=== PATIENT | female | born 1990 | race American Indian/Alaskan Native ===

== ENCOUNTER 2020-09-19 11:24 | Outpatient (CLI) | payer MEDICAID ==
[2020-09-19 13:40] LABS: Bilirubin,Urine NEG (Negative); Blood,Urine NEG (Negative); Color,Urine Yellow (Yellow); Mucus,Urine FEW /HPF; Protein,Urine <15 mg/dL mg/dL (Negative); Urobilinogen,Urine < 2.0 mg/dL (<2.0)
[2020-09-19] MEDS ORDERED: ONDANSETRON 4 MG/2 ML INJ IV ONE (14:19)
[2020-09-19 14:30] LABS: Hematocrit 30.8 % (30.3-42.9); Hemoglobin 10.4 gm/dl (10.1-14.3); Mean Corpuscular HGB Conc 34 % (30-34); Mean Corpuscular Volume 90 fl (79-97); Platelet Count 204 K/mm3 (140-440); Red Blood Count 3.43 M/mm3 (3.65-5.03); Red Cell Distribution Width 13.1 % (13.2-15.2)
[2020-09-19] MEDS ORDERED: METOCLOPRAMIDE 10 MG/2 ML INJ IV ONE (14:46)
[2020-09-19] MEDS: LACTATED RINGERS 1,000 ML IV SCH ×2 (14:48→15:19)
[2020-09-19] MEDS ORDERED: PROMETHAZINE 25 MG RECT SUPP PR ONE (14:48)
[2020-09-19] MEDS ORDERED: MORPHINE 2 MG/1 ML INJ IV ONE (14:49)
[2020-09-19 14:52] LABS: Alanine Aminotransferase 8 units/L (7-56); Uric Acid 2.8 mg/dL (3.5-7.6)
[2020-09-19 16:09] VITALS: BP 146/67
== END 2020-09-19 16:46 | disposition home or self-care (01) ==
LOC: TRG 11:24 → APU 11:25 → TRG 16:46
PROVIDERS: ATTEND Obstetrics & Gynecology
DX: O21.2 Late vomiting of pregnancy (principal); O26.893 Other specified pregnancy related conditions, third trimester; M79.89 Other specified soft tissue disorders; O47.03 False labor before 37 completed weeks of gestation, third trimester; Z3A.28 28 weeks gestation of pregnancy
CPT/HCPCS: 36415; 59025; 81001; 82565; 83615; 84450; 84460; 84550; 85027; 96361; 96374; 96375; J2270; J2765; J7120; 96360

== ENCOUNTER 2020-09-21 10:39 | Outpatient (CLI) | payer MEDICAID ==
[2020-09-21] MEDS ORDERED: LACTATED RINGERS 1,000 ML IV SCH (11:30)
[2020-09-21 12:33] LABS: Bacteria,Urine 1+ /HPF (Negative); Bilirubin,Urine NEG (Negative); Blood,Urine NEG (Negative); Color,Urine Yellow (Yellow); Mucus,Urine 2+ /HPF; Urobilinogen,Urine < 2.0 mg/dL (<2.0)
[2020-09-21 12:40] LABS: Hematocrit 33.9 % (30.3-42.9); Hemoglobin 11.3 gm/dl (10.1-14.3); Mean Corpuscular HGB Conc 33 % (30-34); Mean Corpuscular Volume 91 fl (79-97); Platelet Count 203 K/mm3 (140-440); Red Blood Count 3.74 M/mm3 (3.65-5.03); Red Cell Distribution Width 13.3 % (13.2-15.2)
[2020-09-21 12:49] LABS: Alanine Aminotransferase 9 units/L (7-56); Uric Acid 2.8 mg/dL (3.5-7.6)
[2020-09-21 18:13] VITALS: BP 151/81
== END 2020-09-21 15:45 | disposition home or self-care (01) ==
LOC: TRG 10:39 → APU 10:40 → TRG 15:45
PROVIDERS: ATTEND Obstetrics & Gynecology
DX: O13.3 Gestational [pregnancy-induced] hypertension without significant proteinuria, third trimester (principal); Z3A.28 28 weeks gestation of pregnancy
CPT/HCPCS: 36415; 59025; 81001; 82565; 83615; 84450; 84460; 84550; 85027

== ENCOUNTER 2020-09-30 09:59 | Inpatient (IN) | payer MEDICAID ==
[2020-09-30] MEDS ORDERED: LACTATED RINGERS 1,000 ML IV ONE (10:36)
[2020-09-30 11:10] LABS: Basophils % (Auto) 0.5 % (0.0-1.8); Eosinophils % (Auto) 0.7 % (0.0-4.3); Hematocrit 30.1 % (30.3-42.9); Lymphocytes # (Auto) 1.5 K/mm3 (1.2-5.4); Lymphocytes % (Auto) 23.7 % (13.4-35.0); Mean Corpuscular HGB Conc 33 % (30-34); Mean Corpuscular Volume 89 fl (79-97); Monocytes # (Auto) 0.5 K/mm3 (0.0-0.8); Monocytes % (Auto) 8.1 % (0.0-7.3); Platelet Count 188 K/mm3 (140-440); Red Blood Count 3.37 M/mm3 (3.65-5.03)
[2020-09-30 11:11] LABS: Bilirubin,Urine NEG (Negative); Blood,Urine NEG (Negative); Color,Urine Yellow (Yellow); Mucus,Urine FEW /HPF; Protein,Urine <15 mg/dL mg/dL (Negative); Urobilinogen,Urine < 2.0 mg/dL (<2.0)
[2020-09-30 11:45] LABS: Alanine Aminotransferase 7 units/L (7-56); Albumin 3.4 g/dL (3.9-5); BUN/Creatinine Ratio 6; Blood Urea Nitrogen 3 mg/dL (7-17); Calcium 8.3 mg/dL (8.4-10.2); Hemolysis Index 0
[2020-09-30] MEDS ORDERED: BUTORPHANOL 2 MG/1 ML INJ IV PRN (11:47)
[2020-09-30] MEDS ORDERED: ePHEDrine SULFATE 50 MG/1 ML INJ IV PRN (11:47)
[2020-09-30] MEDS ORDERED: ONDANSETRON 4 MG/2 ML INJ IV PRN (11:47)
[2020-09-30] MEDS ORDERED: MINERAL OIL 30 ML ORAL LIQD PO PRN (11:47)
[2020-09-30] MEDS ORDERED: fentaNYL 100 MCG/2 ML INJ IV PRN (11:47)
--- NOTE | 2020-09-30 11:56 | History and Physical Report ---
History of Present Illness Date of examination: 09/30/20 Chief complaint: elevated blood pressure at 30 weeks History of present illness: 30yo @30.0 weeks with MICHELLE,edema, blurry vision, RUQ pain and elevated BP's from baseline. She is admitted from clinic for PE workup and steroids. KIMBERLYN 12/09/2020 BPs as outpatient 122-161/60-101: not on medication 24 hour urine protein collected 09/23: 176 [facility]: total visits: #7 Problem list: * hx of preeclampsiax2 * morbid obesity * hx of deliveryx2 * HSV2 seropositive Past History Past Medical History: other (obesity) Past Surgical History: no surgical history Family/Genetic History: none Social history: no significant social history - Obstetrical History Expected Date of Delivery: 12/09/20 Actual Gestation: 30 Week(s) 0 Day(s) : 5 Para: 1 Hx # Term Pregnancies: 2 Number of Pregnancies: 0 Number of Living Children: 3 Medications and Allergies Allergies Allergy/AdvReac Type Severity Reaction Status Date / Time ondansetron [From Zofran] Allergy Severe Rash Verified 09/19/20 14:51 butorphanol [From Stadol] AdvReac Severe Anaphylaxis Verified 09/19/20 12:44 tramadol AdvReac Severe Rash Verified 09/19/20 12:46 Home Medications Medication Instructions Recorded Confirmed Last Taken Type Butalb/Acetamin/Caff 50-325-40 01/26/14 01/26/14 Unknown History [Fioricet] HYDROcodone/APAP 10-325 [[place] 1 each PO Q8HR PRN #20 tablet 01/26/14 Unknown Rx 10/325] Ibuprofen [Motrin 800 MG tab] 800 mg PO Q8H PRN 01/26/14 01/26/14 Unknown History Ondansetron [Zofran Odt] 8 mg PO TID PRN #20 tab.rapdis 01/26/14 Unknown Rx diazePAM TAB [Valium] 2 mg PO DAILY PRN 01/26/14 01/26/14 Unknown History Cyclobenzaprine [Flexeril 10mg] 10 mg PO TID PRN #10 tablet 05/11/14 Unknown Rx Sulfamethoxazole/Trimethoprim 1 each PO BID #20 tablet 05/11/14 Unknown Rx [Bactrim Ds] Active Meds: Active Medications Acetaminophen (Acetaminophen 325 Mg Tab) 650 mg PO Q4H PRN PRN Reason: Pain, Mild (1-3) Betamethasone Acet/Betameth SodPhos (Betamet Acet/Betamet Na Ph 6 Mg/Ml Inj 5 Ml Mdv) 12 mg IM Q24HR [facility] Stop: 10/01/20 10:01 Butorphanol Tartrate (Butorphanol 2 Mg/1 Ml Inj) 1 mg IV Q2H PRN PRN Reason: Pain, Moderate(4-6) LABOR PAIN Ephedrine Sulfate (Ephedrine Sulfate 50 Mg/1 Ml Inj) 10 mg IV Q2M PRN PRN Reason: Hypotension Fentanyl (Fentanyl 100 Mcg/2 Ml Inj) 100 mcg IV Q2H PRN PRN Reason: Pain,Severe (7-10) LABOR PAIN Lactated Ringer's (Lactated Ringers) 1,000 mls @ 125 mls/hr IV DIRECT [facility] Labetalol HCl (Labetalol 200 Mg Tab) 100 mg PO BID [facility] Mineral Oil (Mineral Oil 30 Ml Oral Liqd) 30 ml PO QHS PRN PRN Reason: Constipation Ondansetron HCl (Ondansetron 4 Mg/2 Ml Inj) 4 mg IV Q8H PRN PRN Reason: Nausea And Vomiting - Vital Signs Vital signs: Vital Signs Pulse BP 84 139/70 09/30/20 10:45 09/30/20 10:45 Temp Pulse Resp BP Pulse Ox 83 140/79 99 09/30/20 11:36 09/30/20 11:30 09/30/20 11:36 - Physical Exam Breasts: Positive: deferred Cardiovascular: Regular rate Lungs: Positive: Clear to auscultation Abdomen: Positive: normal appearance, soft, normal bowel sounds Genitourinary (Female): Positive: normal external genitalia, normal perenium Uterus: Positive: enlarged (30cm) Anus/Rectum: Positive: normal perianal skin Extremities: Positive: edema Deep Tendon Reflex Grade: Normal but brisk +3 Results Result Diagrams: 09/30/20 11:47 09/30/20 10:40 Abnormal lab results 09/30/20 09/30/20 09/30/20 Range/Units 10:40 10:40 10:40 RBC 3.37 L (3.65-5.03) M/mm3 Hgb 10.0 L (10.1-14.3) gm/dl Hct 30.1 L (30.3-42.9) % RDW 13.0 L (13.2-15.2) % [place] % (Auto) 8.1 H (0.0-7.3) % Sodium 136 L (137-145) mmol/L BUN 3 L (7-17) mg/dL Creatinine 0.5 L (0.6-1.2) mg/dL Calcium 8.3 L (8.4-10.2) mg/dL Total Protein 6.1 L (6.3-8.2) g/dL Albumin 3.4 L (3.9-5) g/dL Urine pH 8.0 H (5.0-7.0) All other labs normal. Assessment and Plan preeclampsia workup: does not meet criteria for MgS04 at this time Monitor BPs closely 24 hour urine protein collection steroids US EFW and UA dopplers serial labs AP consult RUQ US for RUQ pain Maternal/ well being reassuring overall Irena Cagle MD
--- NOTE | 2020-09-30 13:26 | Ultrasound Report ---
ULTRASOUND BIOPHYSICAL PROFILE INDICATION: preeclapmsia,. COMPARISON: None available. FINDINGS: heart rate is 145 beats per minute. breathing movement = 2 Gross body movement = 2 tone = 2 Qualitative amniotic fluid volume = 2 IMPRESSION: biophysical profile = 01/01 Signer Name: Chay Caldwell Jr, MD Signed: 09/30/2020 1:21 PM Workstation Name: [id number]
--- NOTE | 2020-09-30 13:28 | Ultrasound Report ---
OB ULTRASOUND >= 14 WEEKS FETUS INDICATION: preeclapmsia, COMPARISON: None FINDINGS: A single gestation intrauterine is present with cephalic presentation. The placenta is post erior, right lateral, grade 1 and free of the cervical os. heart tones measure 150 bpm. Amniotic fluid volume is normal with a fluid index of 16.9. The four-chamber heart, diaphragm, umbilical cord, cord insertion, stomach, kidneys, and bladde r show no sonographic abnormality. Views of the neuroanatomy and spine are limited due to position an d shadowing calvarium. Biparietal diameter is 7.7 cm which equals 30 weeks 6 days. Head circumference is 27.8 cm which equals 30 weeks 2 days. Abdominal circumference is 24.4 cm which equals 28 weeks 4 days. Femur length is 5.8 cm which equals 30 weeks 3 days. Overall estimated sonographic age is 30 weeks 0 days. Estimated weight: 1412 g. HC/AC ratio: 1.14 Cephalic index: 91.7 IMPRESSION: Viable single intrauterine as described. No acute abnormality is detected. Signer Name: Chay Caldwell Jr, MD Signed: 09/30/2020 1:24 PM Workstation Name: [id number]
--- NOTE | 2020-09-30 13:29 | Ultrasound Report ---
LIMITED RUQ ABDOMINAL ULTRASOUND INDICATION: RUQ pain. COMPARISON: No relevant prior imaging study available. FINDINGS: Pancreas: Visualized portions show no significant abnormality. Abdominal Aorta: No significant abnormality. IVC: No significant abnormality. Liver: The liver measures 13.2 cm in length. No significant abnormality. Normal hepatopedal blood fl ow in the main portal vein. Gallbladder: No significant abnormality. Bile ducts: No significant abnormality. Common bile duct measures 2.8 mm. Right kidney: No significant abnormality visualized. Free fluid: None. Additional Findings: None. IMPRESSION: Normal exam. Signer Name: Chay Caldwell Jr, MD Signed: 09/30/2020 1:24 PM Workstation Name: [id number]
--- NOTE | 2020-09-30 13:30 | Ultrasound Report ---
UMBILICAL CORD DOPPLER HISTORY: Preeclampsia, labor TECHNIQUE: Transabdominal ultrasound with color and spectral Doppler imaging. FINDINGS: 3 segments of the umbilical cord were evaluated. heart rate measures 138 bpm. The spe ctral wave forms are normal and persistent. No evidence for loss of end-diastolic flow. The S/D ratio average measures 2.91. The resistive index average measures 0.65. IMPRESSION: Umbilical cord Doppler within normal limits. Signer Name: Chay Caldwell Jr, MD Signed: 09/30/2020 1:25 PM Workstation Name: [id number]
[2020-09-30] MEDS: BETAMET ACET/BETAMET NA PH 6 MG/ML INJ 5 ML MDV IM SCH (13:55)
[2020-09-30 14:51] LABS: Hematocrit 32.7 % (30.3-42.9); Hemoglobin 10.8 gm/dl (10.1-14.3); Mean Corpuscular HGB Conc 33 % (30-34); Mean Corpuscular Volume 91 fl (79-97); Platelet Count 189 K/mm3 (140-440); Red Blood Count 3.59 M/mm3 (3.65-5.03); Red Cell Distribution Width 13.3 % (13.2-15.2)
--- NOTE | 2020-09-30 15:56 | Consultation ---
History of Present Illness Consult date: 09/30/20 Requesting physician: JANELLE LOWRY History of present illness: HPI 30 y/o EGA 30 0/7 weeks KIMBERLYN 12/09/20 Presented with MICHELLE's Swelling and elevated BP's Prior H/O Preeclampsia and PTD at 34 and 35 weeks Reports elevated BP's and MICHELLE's over past couple weeks BP at home ( picture on cell phone ) at 164/97 BP's at [facility] 145/79 and 135/70 but laying down MICHELLE's earlier this am 11/03 now better Patient showed picture of her lower extremities taken at home with 3Plus edema OB History 2009 Induced vag at 34 weeks preeclampsia F 2010 Induced vag at 36 weeks ( my baby was big ?? ) 2012 Induced vag at 35 weeks preeclampsia F Denies CHTN No surg no S/D/D NKA Please confirm passing 1 Hour GTT - " Passed " per patient No STD Allergic to stadol Tramidol Zofran labs H/H at 10.8/32 Plts at 189 UA spot Prot at < 15 AST/ALT at 17/7 Creat at .5 PE Face mild swelling port wine estefania Abd gravid obese no ruq pain no rebound ext 1plus edema DTR 2/4 no clonus US EFW at 1412 g - 24% ( APA US 09/05/20 EFW at 912 g 31% ) BPP 8/8 YOANNA at 16.9 cm EFM 140-150 categ I Past History - Obstetrical History : 5 Medications and Allergies Allergies Allergy/AdvReac Type Severity Reaction Status Date / Time ondansetron [From Zofran] Allergy Severe Rash Verified 09/30/20 15:58 butorphanol [From Stadol] AdvReac Severe Anaphylaxis Verified 09/30/20 15:58 tramadol AdvReac Severe Rash Verified 09/30/20 15:58 Active Meds: Active Medications Acetaminophen (Acetaminophen 325 Mg Tab) 650 mg PO Q4H PRN PRN Reason: Pain, Mild (1-3) Betamethasone Acet/Betameth SodPhos (Betamet Acet/Betamet Na Ph 6 Mg/Ml Inj 5 Ml Mdv) 12 mg IM Q24HR [facility] Stop: 10/01/20 10:01 Last Admin: 09/30/20 13:55 Dose: 12 mg Documented by: Butorphanol Tartrate (Butorphanol 2 Mg/1 Ml Inj) 1 mg IV Q2H PRN PRN Reason: Pain, Moderate(4-6) LABOR PAIN Ephedrine Sulfate (Ephedrine Sulfate 50 Mg/1 Ml Inj) 10 mg IV Q2M PRN PRN Reason: Hypotension Fentanyl (Fentanyl 100 Mcg/2 Ml Inj) 100 mcg IV Q2H PRN PRN Reason: Pain,Severe (7-10) LABOR PAIN Lactated Ringer's (Lactated Ringers) 1,000 mls @ 125 mls/hr IV DIRECT [facility] Labetalol HCl (Labetalol 200 Mg Tab) 100 mg PO BID [facility] Last Admin: 09/30/20 13:55 Dose: 100 mg Documented by: Mineral Oil (Mineral Oil 30 Ml Oral Liqd) 30 ml PO QHS PRN PRN Reason: Constipation Ondansetron HCl (Ondansetron 4 Mg/2 Ml Inj) 4 mg IV Q8H PRN PRN Reason: Nausea And Vomiting - Vital Signs Vital signs: Vital Signs Pulse BP 84 139/70 09/30/20 10:45 09/30/20 10:45 Temp Pulse Resp BP Pulse Ox 93 H 135/70 100 09/30/20 15:43 09/30/20 14:19 09/30/20 15:43 Results Result Diagrams: 09/30/20 11:47 09/30/20 10:40 Abnormal lab results 09/30/20 09/30/20 09/30/20 Range/Units 10:40 10:40 10:40 RBC 3.37 L (3.65-5.03) M/mm3 Hgb 10.0 L (10.1-14.3) gm/dl Hct 30.1 L (30.3-42.9) % RDW 13.0 L (13.2-15.2) % [place] % (Auto) 8.1 H (0.0-7.3) % Sodium 136 L (137-145) mmol/L BUN 3 L (7-17) mg/dL Creatinine 0.5 L (0.6-1.2) mg/dL Calcium 8.3 L (8.4-10.2) mg/dL Total Protein 6.1 L (6.3-8.2) g/dL Albumin 3.4 L (3.9-5) g/dL Urine pH 8.0 H (5.0-7.0) 09/30/20 Range/Units 11:47 RBC 3.59 L (3.65-5.03) M/mm3 Hgb (10.1-14.3) gm/dl Hct (30.3-42.9) % RDW (13.2-15.2) % [place] % (Auto) (0.0-7.3) % Sodium (137-145) mmol/L BUN (7-17) mg/dL Creatinine (0.6-1.2) mg/dL Calcium (8.4-10.2) mg/dL Total Protein (6.3-8.2) g/dL Albumin (3.9-5) g/dL Urine pH (5.0-7.0) All other labs normal. Assessment and Plan Impression: 1. Ver[place] IUP at 30 0/7 weeks 2. Gest HTN r/o Preeclampsia 3. Prior H/O Preeclampsia X 2 at 34 and 35 weeks 4. Reported MICHELLE's and swelling 5. Anemia Plan: 1. Steroids for FLM 2. Mg for neuroprophylaxis may dc after 24 hours if no severe features 3. NICU consult 4. Seq leg compressors 5. Delivery for S/S of Severe Preeclampsia or compromise
[2020-09-30] MEDS ORDERED: MAGNESIUM SULFATE 4 GM/100 ML BAG IV ONE (16:26)
[2020-09-30] MEDS ORDERED: BICITRA ORAL LIQD 30ML PO ONE (16:39)
[2020-09-30] MEDS ORDERED: METOCLOPRAMIDE 10 MG/2 ML INJ IV ONE (16:40)
[2020-09-30] MEDS ORDERED: MORPHINE 2 MG/1 ML INJ IM ONE (16:40)
[2020-09-30] MEDS ORDERED: MAGNESIUM SULFATE 40GM/1000ML 40 GM/1,000 ML BAG IV SCH (17:00)
[2020-09-30] MEDS: LACTATED RINGERS 1,000 ML IV SCH (17:23)
[2020-09-30] MEDS ORDERED: PROMETHAZINE 25 MG RECT SUPP PR ONE (20:00)
[2020-09-30] MEDS: ACETAMINOPHEN 325 MG TAB PO PRN (20:13)
[2020-09-30] MEDS ORDERED: LORazepam 2 MG/ML VIAL IV ONE (20:51)
--- NOTE | 2020-10-01 08:14 | Progress Note ---
Subjective - Subjective Date of service: 10/01/20 Interval history: 30yo @30.1 weeks GHTN with r/out preeclampsia Pt doing well, no complaints at bedside awaiting 24 hour urine protein collection completion and completion of steroids BP's average 140/90's MGSO4 level 4.7 DTR +1/4 bilaterally FHT 140 baseline,moderate variability Continue current management Maternal/ wellbeing reassuring overall Irena Cagle MD Objective - Vital Signs Vital Signs: Vital Signs - 12hr 09/30/20 09/30/20 09/30/20 20:13 20:18 20:21 Temperature Pulse Rate 105 H 95 H 101 H Respiratory Rate Blood Pressure 152/81 Blood Pressure [Right] O2 Sat by Pulse 98 99 Oximetry 09/30/20 09/30/20 09/30/20 20:23 20:28 20:33 Temperature Pulse Rate 108 H 98 H 108 H Respiratory Rate Blood Pressure Blood Pressure [Right] O2 Sat by Pulse 99 100 98 Oximetry 09/30/20 09/30/20 09/30/20 20:36 20:38 20:43 Temperature Pulse Rate 110 H 107 H 102 H Respiratory Rate Blood Pressure 147/70 Blood Pressure [Right] O2 Sat by Pulse 99 100 Oximetry 09/30/20 09/30/20 09/30/20 20:48 20:51 20:53 Temperature 98.5 F Pulse Rate 107 H 106 H 97 H Respiratory 22 Rate Blood Pressure 147/84 Blood Pressure [Right] O2 Sat by Pulse 100 99 Oximetry 09/30/20 09/30/20 09/30/20 20:58 21:03 21:06 Temperature Pulse Rate 110 H 104 H 100 H Respiratory Rate Blood Pressure 153/87 Blood Pressure [Right] O2 Sat by Pulse 98 100 Oximetry 09/30/20 09/30/20 09/30/20 21:08 21:13 21:18 Temperature Pulse Rate 105 H 100 H 105 H Respiratory Rate Blood Pressure Blood Pressure [Right] O2 Sat by Pulse 99 96 98 Oximetry 09/30/20 09/30/20 09/30/20 21:22 21:23 21:28 Temperature Pulse Rate 105 H 105 H 120 H Respiratory Rate Blood Pressure 141/70 Blood Pressure [Right] O2 Sat by Pulse 97 99 Oximetry 09/30/20 09/30/20 09/30/20 21:33 21:36 21:38 Temperature Pulse Rate 113 H 126 H 115 H Respiratory Rate Blood Pressure 143/87 Blood Pressure [Right] O2 Sat by Pulse 99 99 Oximetry 09/30/20 09/30/20 09/30/20 21:43 21:48 21:53 Temperature Pulse Rate 102 H 127 H 103 H Respiratory Rate Blood Pressure Blood Pressure [Right] O2 Sat by Pulse 100 98 100 Oximetry 09/30/20 09/30/20 09/30/20 21:58 22:03 22:08 Temperature Pulse Rate 120 H 106 H 104 H Respiratory Rate Blood Pressure Blood Pressure [Right] O2 Sat by Pulse 98 98 98 Oximetry 09/30/20 09/30/20 09/30/20 22:13 22:18 22:23 Temperature Pulse Rate 112 H 109 H 106 H Respiratory Rate Blood Pressure 145/81 Blood Pressure [Right] O2 Sat by Pulse 97 97 97 Oximetry 09/30/20 09/30/20 09/30/20 22:28 22:33 22:37 Temperature Pulse Rate 107 H 109 H 117 H Respiratory Rate Blood Pressure Blood Pressure [Right] O2 Sat by Pulse 97 97 92 Oximetry 09/30/20 09/30/20 09/30/20 22:38 22:43 22:45 Temperature Pulse Rate 124 H 99 H 104 H Respiratory Rate Blood Pressure 169/82 Blood Pressure [Right] O2 Sat by Pulse 97 100 Oximetry 09/30/20 09/30/20 09/30/20 22:48 22:53 22:58 Temperature Pulse Rate 101 H 104 H 105 H Respiratory Rate Blood Pressure Blood Pressure [Right] O2 Sat by Pulse 100 99 100 Oximetry 09/30/20 09/30/20 09/30/20 23:03 23:08 23:13 Temperature Pulse Rate 110 H 106 H 102 H Respiratory Rate Blood Pressure 140/77 Blood Pressure [Right] O2 Sat by Pulse 100 100 99 Oximetry 09/30/20 09/30/20 09/30/20 23:15 23:18 23:23 Temperature Pulse Rate 102 H 108 H 112 H Respiratory Rate Blood Pressure 158/86 Blood Pressure [Right] O2 Sat by Pulse 100 100 Oximetry 09/30/20 09/30/20 09/30/20 23:28 23:33 23:38 Temperature Pulse Rate 107 H 107 H 109 H Respiratory Rate Blood Pressure Blood Pressure [Right] O2 Sat by Pulse 100 99 100 Oximetry 09/30/20 09/30/20 09/30/20 23:43 23:48 23:53 Temperature Pulse Rate 107 H 116 H 111 H Respiratory Rate Blood Pressure 173/96 Blood Pressure [Right] O2 Sat by Pulse 100 99 100 Oximetry 09/30/20 10/01/20 10/01/20 23:58 00:02 00:03 Temperature Pulse Rate 104 H 99 H 105 H Respiratory Rate Blood Pressure 137/62 Blood Pressure [Right] O2 Sat by Pulse 99 99 Oximetry 10/01/20 10/01/20 10/01/20 00:08 00:13 00:18 Temperature Pulse Rate 103 H 107 H 96 H Respiratory Rate Blood Pressure Blood Pressure [Right] O2 Sat by Pulse 100 98 99 Oximetry 10/01/20 10/01/20 10/01/20 00:23 00:25 00:28 Temperature Pulse Rate 99 H 109 H 106 H Respiratory Rate Blood Pressure Blood Pressure [Right] O2 Sat by Pulse 98 92 95 Oximetry 10/01/20 10/01/20 10/01/20 00:33 00:35 00:38 Temperature Pulse Rate 96 H 100 H 99 H Respiratory Rate Blood Pressure 134/66 Blood Pressure [Right] O2 Sat by Pulse 98 92 97 Oximetry 10/01/20 10/01/20 10/01/20 00:40 00:43 00:46 Temperature Pulse Rate 103 H 105 H 104 H Respiratory Rate Blood Pressure Blood Pressure [Right] O2 Sat by Pulse 93 95 94 Oximetry 10/01/20 10/01/20 10/01/20 00:48 00:52 00:53 Temperature Pulse Rate 103 H 102 H 103 H Respiratory Rate Blood Pressure Blood Pressure [Right] O2 Sat by Pulse 94 94 95 Oximetry 10/01/20 10/01/20 10/01/20 00:58 01:03 01:04 Temperature Pulse Rate 113 H 112 H 104 H Respiratory Rate Blood Pressure 138/73 Blood Pressure [Right] O2 Sat by Pulse 96 98 93 Oximetry 10/01/20 10/01/20 10/01/20 01:08 01:13 01:18 Temperature Pulse Rate 98 H 103 H 105 H Respiratory Rate Blood Pressure Blood Pressure [Right] O2 Sat by Pulse 98 94 95 Oximetry 10/01/20 10/01/20 10/01/20 01:23 01:26 01:28 Temperature Pulse Rate 99 H 101 H 99 H Respiratory Rate Blood Pressure Blood Pressure [Right] O2 Sat by Pulse 96 93 96 Oximetry 10/01/20 10/01/20 10/01/20 01:33 01:35 01:38 Temperature Pulse Rate 99 H 102 H 100 H Respiratory Rate Blood Pressure 139/68 Blood Pressure [Right] O2 Sat by Pulse 96 94 96 Oximetry 10/01/20 10/01/20 10/01/20 01:43 01:48 01:53 Temperature Pulse Rate 113 H 91 H 101 H Respiratory Rate Blood Pressure Blood Pressure [Right] O2 Sat by Pulse 98 100 97 Oximetry 10/01/20 10/01/20 10/01/20 01:58 02:03 02:08 Temperature Pulse Rate 96 H 107 H 98 H Respiratory Rate Blood Pressure 139/75 Blood Pressure [Right] O2 Sat by Pulse 97 98 99 Oximetry 10/01/20 10/01/20 10/01/20 02:13 02:18 02:23 Temperature Pulse Rate 97 H 98 H 99 H Respiratory Rate Blood Pressure Blood Pressure [Right] O2 Sat by Pulse 98 98 97 Oximetry 10/01/20 10/01/20 10/01/20 02:28 02:33 02:38 Temperature Pulse Rate 104 H 101 H 99 H Respiratory Rate Blood Pressure 139/74 Blood Pressure [Right] O2 Sat by Pulse 96 98 97 Oximetry 10/01/20 10/01/20 10/01/20 02:43 02:44 02:48 Temperature Pulse Rate 102 H 111 H 107 H Respiratory Rate Blood Pressure Blood Pressure [Right] O2 Sat by Pulse 95 94 100 Oximetry 10/01/20 10/01/20 10/01/20 02:52 02:53 02:58 Temperature Pulse Rate 100 H 94 H 91 H Respiratory Rate Blood Pressure 152/98 Blood Pressure [Right] O2 Sat by Pulse 100 100 Oximetry 10/01/20 10/01/20 10/01/20 03:01 03:03 03:08 Temperature Pulse Rate 91 H 90 91 H Respiratory Rate Blood Pressure 141/66 121/57 Blood Pressure [Right] O2 Sat by Pulse 100 99 Oximetry 10/01/20 10/01/20 10/01/20 03:13 03:18 03:23 Temperature Pulse Rate 105 H 89 90 Respiratory Rate Blood Pressure Blood Pressure [Right] O2 Sat by Pulse 98 99 99 Oximetry 10/01/20 10/01/20 10/01/20 03:28 03:33 03:34 Temperature Pulse Rate 94 H 94 H 93 H Respiratory Rate Blood Pressure 115/57 Blood Pressure [Right] O2 Sat by Pulse 98 100 Oximetry 10/01/20 10/01/20 10/01/20 03:38 03:43 03:48 Temperature Pulse Rate 94 H 94 H 95 H Respiratory Rate Blood Pressure Blood Pressure [Right] O2 Sat by Pulse 100 100 99 Oximetry 10/01/20 10/01/20 10/01/20 03:53 03:58 04:03 Temperature Pulse Rate 95 H 95 H 100 H Respiratory Rate Blood Pressure Blood Pressure [Right] O2 Sat by Pulse 95 96 96 Oximetry 10/01/20 10/01/20 10/01/20 04:05 04:08 04:13 Temperature Pulse Rate 94 H 93 H 92 H Respiratory Rate Blood Pressure 118/59 Blood Pressure [Right] O2 Sat by Pulse 98 98 Oximetry 10/01/20 10/01/20 10/01/20 04:18 04:23 04:28 Temperature Pulse Rate 91 H 91 H 90 Respiratory Rate Blood Pressure Blood Pressure [Right] O2 Sat by Pulse 98 100 99 Oximetry 10/01/20 10/01/20 10/01/20 04:33 04:38 04:40 Temperature Pulse Rate 90 91 H 95 H Respiratory Rate Blood Pressure 128/56 Blood Pressure [Right] O2 Sat by Pulse 99 99 92 Oximetry 10/01/20 10/01/20 10/01/20 04:43 04:48 04:53 Temperature Pulse Rate 96 H 95 H 91 H Respiratory Rate Blood Pressure Blood Pressure [Right] O2 Sat by Pulse 96 99 99 Oximetry 10/01/20 10/01/20 10/01/20 04:58 05:03 05:05 Temperature Pulse Rate 93 H 95 H 93 H Respiratory Rate Blood Pressure 125/60 Blood Pressure [Right] O2 Sat by Pulse 98 99 Oximetry 10/01/20 10/01/20 10/01/20 05:08 05:13 05:18 Temperature Pulse Rate 99 H 100 H 108 H Respiratory Rate Blood Pressure Blood Pressure [Right] O2 Sat by Pulse 98 97 100 Oximetry 10/01/20 10/01/20 10/01/20 05:23 05:26 05:28 Temperature 97.9 F Pulse Rate 88 92 H Respiratory Rate Blood Pressure Blood Pressure [Right] O2 Sat by Pulse 100 98 Oximetry 10/01/20 10/01/20 10/01/20 05:33 05:38 05:43 Temperature Pulse Rate 87 92 H 92 H Respiratory Rate Blood Pressure 118/56 Blood Pressure [Right] O2 Sat by Pulse 98 97 99 Oximetry 10/01/20 10/01/20 10/01/20 05:48 05:53 05:58 Temperature Pulse Rate 96 H 93 H 94 H Respiratory Rate Blood Pressure Blood Pressure [Right] O2 Sat by Pulse 99 99 95 Oximetry 10/01/20 10/01/20 10/01/20 06:00 06:03 06:04 Temperature Pulse Rate 99 H 97 H 102 H Respiratory Rate Blood Pressure 125/56 Blood Pressure [Right] O2 Sat by Pulse 94 98 Oximetry 10/01/20 10/01/20 10/01/20 06:08 06:13 06:18 Temperature Pulse Rate 105 H 95 H 105 H Respiratory Rate Blood Pressure Blood Pressure [Right] O2 Sat by Pulse 99 96 97 Oximetry 10/01/20 10/01/20 10/01/20 06:23 06:28 06:33 Temperature Pulse Rate 97 H 98 H 98 H Respiratory Rate Blood Pressure 139/71 Blood Pressure [Right] O2 Sat by Pulse 100 99 98 Oximetry 10/01/20 10/01/20 10/01/20 06:38 06:43 06:48 Temperature Pulse Rate 97 H 107 H 94 H Respiratory Rate Blood Pressure Blood Pressure [Right] O2 Sat by Pulse 99 97 100 Oximetry 10/01/20 10/01/20 10/01/20 06:53 06:58 07:03 Temperature Pulse Rate 92 H 94 H 99 H Respiratory Rate Blood Pressure Blood Pressure [Right] O2 Sat by Pulse 100 100 100 Oximetry 10/01/20 10/01/20 10/01/20 07:04 07:08 07:13 Temperature Pulse Rate 93 H 93 H 95 H Respiratory Rate Blood Pressure 144/72 Blood Pressure [Right] O2 Sat by Pulse 100 100 Oximetry 10/01/20 10/01/20 10/01/20 07:18 07:23 07:28 Temperature Pulse Rate 97 H 100 H 100 H Respiratory Rate Blood Pressure Blood Pressure [Right] O2 Sat by Pulse 100 98 98 Oximetry 10/01/20 10/01/20 10/01/20 07:33 07:38 07:43 Temperature Pulse Rate 94 H 98 H 97 H Respiratory Rate Blood Pressure 145/77 Blood Pressure [Right] O2 Sat by Pulse 100 99 100 Oximetry 10/01/20 10/01/20 10/01/20 07:48 07:49 07:51 Temperature 97.9 F Pulse Rate 109 H 104 H 104 H Respiratory 18 Rate Blood Pressure 144/74 Blood Pressure 144/74 [Right] O2 Sat by Pulse 100 100 Oximetry 10/01/20 10/01/20 10/01/20 07:53 07:58 08:03 Temperature Pulse Rate 105 H 102 H 98 H Respiratory Rate Blood Pressure 148/83 Blood Pressure [Right] O2 Sat by Pulse 100 100 99 Oximetry 10/01/20 08:08 Temperature Pulse Rate 100 H Respiratory Rate Blood Pressure Blood Pressure [Right] O2 Sat by Pulse 99 Oximetry - Labs Labs: Abnormal Labs 09/30/20 09/30/20 09/30/20 10:40 10:40 10:40 RBC 3.37 L Hgb 10.0 L Hct 30.1 L RDW 13.0 L [place] % (Auto) 8.1 H Sodium 136 L BUN 3 L Creatinine 0.5 L Calcium 8.3 L Magnesium Total Protein 6.1 L Albumin 3.4 L Urine pH 8.0 H 09/30/20 09/30/20 09/30/20 10:40 11:47 22:58 RBC 3.59 L Hgb Hct RDW [place] % (Auto) Sodium BUN Creatinine Calcium Magnesium 1.60 L 4.20 H Total Protein Albumin Urine pH 10/01/20 06:47 RBC Hgb Hct RDW [place] % (Auto) Sodium BUN Creatinine Calcium Magnesium 4.70 H Total Protein Albumin Urine pH Laboratory Results - last 24 hr 09/30/20 09/30/20 09/30/20 10:40 10:40 10:40 WBC 6.5 RBC 3.37 L Hgb 10.0 L Hct 30.1 L MCV 89 MCH 30 MCHC 33 RDW 13.0 L Plt Count 188 Lymph % (Auto) 23.7 [place] % (Auto) 8.1 H Eos % (Auto) 0.7 Baso % (Auto) 0.5 Lymph # (Auto) 1.5 [place] # (Auto) 0.5 Eos # (Auto) 0.0 Baso # (Auto) 0.0 Seg Neutrophils % 67.0 Seg Neutrophils # 4.4 Sodium 136 L Potassium 4.2 Chloride 103.6 Carbon Dioxide 24 Anion Gap 13 BUN 3 L Creatinine 0.5 L Estimated GFR > 60 BUN/Creatinine Ratio 6 Glucose 79 Calcium 8.3 L Magnesium Total Bilirubin 0.20 AST 17 ALT 7 Alkaline Phosphatase 75 Total Protein 6.1 L Albumin 3.4 L Albumin/Globulin Ratio 1.3 Urine Color Yellow Urine Turbidity Clear Urine pH 8.0 H Ur Specific [place] 1.011 Urine Protein <15 mg/dl Urine Glucose (UA) Neg Urine Ketones 20 Urine Blood Neg Urine Nitrite Neg Urine Bilirubin Neg Urine Urobilinogen < 2.0 Ur Leukocyte Esterase Tr Urine WBC (Auto) 2.0 Urine RBC (Auto) 1.0 U Epithel Cells (Auto) 4.0 Urine Mucus Few Blood Type Antibody Screen 09/30/20 09/30/20 09/30/20 10:40 11:47 13:56 WBC 7.2 RBC 3.59 L Hgb 10.8 Hct 32.7 MCV 91 MCH 30 MCHC 33 RDW 13.3 Plt Count 189 Lymph % (Auto) [place] % (Auto) Eos % (Auto) Baso % (Auto) Lymph # (Auto) [place] # (Auto) Eos # (Auto) Baso # (Auto) Seg Neutrophils % Seg Neutrophils # Sodium Potassium Chloride Carbon Dioxide Anion Gap BUN Creatinine Estimated GFR BUN/Creatinine Ratio Glucose Calcium Magnesium 1.60 L Total Bilirubin AST ALT Alkaline Phosphatase Total Protein Albumin Albumin/Globulin Ratio Urine Color Urine Turbidity Urine pH Ur Specific [place] Urine Protein Urine Glucose (UA) Urine Ketones Urine Blood Urine Nitrite Urine Bilirubin Urine Urobilinogen Ur Leukocyte Esterase Urine WBC (Auto) Urine RBC (Auto) U Epithel Cells (Auto) Urine Mucus Blood Type A POSITIVE Antibody Screen Negative 09/30/20 10/01/20 22:58 06:47 WBC RBC Hgb Hct MCV MCH MCHC RDW Plt Count Lymph % (Auto) [place] % (Auto) Eos % (Auto) Baso % (Auto) Lymph # (Auto) [place] # (Auto) Eos # (Auto) Baso # (Auto) Seg Neutrophils % Seg Neutrophils # Sodium Potassium Chloride Carbon Dioxide Anion Gap BUN Creatinine Estimated GFR BUN/Creatinine Ratio Glucose Calcium Magnesium 4.20 H 4.70 H Total Bilirubin AST ALT Alkaline Phosphatase Total Protein Albumin Albumin/Globulin Ratio Urine Color Urine Turbidity Urine pH Ur Specific [place] Urine Protein Urine Glucose (UA) Urine Ketones Urine Blood Urine Nitrite Urine Bilirubin Urine Urobilinogen Ur Leukocyte Esterase Urine WBC (Auto) Urine RBC (Auto) U Epithel Cells (Auto) Urine Mucus Blood Type Antibody Screen
[2020-10-01] MEDS: ACETAMINOPHEN 325 MG TAB PO PRN (12:01)
[2020-10-01] MEDS: BETAMET ACET/BETAMET NA PH 6 MG/ML INJ 5 ML MDV IM SCH (13:59)
[2020-10-01] MEDS ORDERED: METOCLOPRAMIDE 10 MG/2 ML INJ IV PRN (17:31)
[2020-10-01] MEDS: LACTATED RINGERS 1,000 ML IV SCH (17:55)
[2020-10-01 21:32] LABS: Hematocrit 31.4 % (30.3-42.9); Hemoglobin 10.3 gm/dl (10.1-14.3); Mean Corpuscular HGB Conc 33 % (30-34); Mean Corpuscular Volume 91 fl (79-97); Platelet Count 208 K/mm3 (140-440); Red Blood Count 3.45 M/mm3 (3.65-5.03); Red Cell Distribution Width 13.2 % (13.2-15.2)
[2020-10-01 21:44] LABS: Alanine Aminotransferase < 5 units/L (7-56)
[2020-10-02] MEDS: LACTATED RINGERS 1,000 ML IV SCH (03:01)
--- NOTE | 2020-10-02 09:13 | Progress Note ---
Subjective - Subjective Date of service: 10/02/20 Interval history: 30yo @30.2 weeks GHTN with r/out preeclampsia Pt doing well, no complaint 24 hour urine protein <300, BP's average 140/90's PE WNL FHT 140 baseline,moderate variability stable for d/c to home with LUIS and [facility] f/up in 3 days Maternal/ wellbeing reassuring overall Irena Cagle MD Objective - Vital Signs Vital Signs: Vital Signs - 12hr 10/01/20 10/01/20 10/01/20 21:12 21:17 21:22 Temperature Pulse Rate 87 93 H 96 H Respiratory Rate Blood Pressure Blood Pressure [Right] O2 Sat by Pulse 100 99 100 Oximetry 10/01/20 10/01/20 10/01/20 21:27 21:32 21:33 Temperature Pulse Rate 92 H 92 H 92 H Respiratory Rate Blood Pressure 143/90 Blood Pressure [Right] O2 Sat by Pulse 99 98 Oximetry 10/01/20 10/01/20 10/01/20 21:37 21:42 21:47 Temperature Pulse Rate 91 H 89 95 H Respiratory Rate Blood Pressure Blood Pressure [Right] O2 Sat by Pulse 100 99 100 Oximetry 10/01/20 10/01/20 10/01/20 21:52 21:57 22:02 Temperature Pulse Rate 104 H 82 99 H Respiratory Rate Blood Pressure Blood Pressure [Right] O2 Sat by Pulse 100 99 100 Oximetry 10/01/20 10/01/20 10/01/20 22:03 22:07 22:12 Temperature Pulse Rate 93 H 92 H 90 Respiratory Rate Blood Pressure 142/75 Blood Pressure [Right] O2 Sat by Pulse 100 99 Oximetry 10/01/20 10/01/20 10/01/20 22:17 22:22 22:27 Temperature Pulse Rate 99 H 90 95 H Respiratory Rate Blood Pressure Blood Pressure [Right] O2 Sat by Pulse 99 100 99 Oximetry 10/01/20 10/01/20 10/01/20 22:32 22:34 22:37 Temperature Pulse Rate 97 H 112 H 102 H Respiratory Rate Blood Pressure 157/85 Blood Pressure [Right] O2 Sat by Pulse 98 98 Oximetry 10/01/20 10/01/20 10/02/20 23:31 23:33 00:03 Temperature Pulse Rate 101 H 100 H 90 Respiratory Rate Blood Pressure 109/56 108/54 120/58 Blood Pressure [Right] O2 Sat by Pulse Oximetry 10/02/20 10/02/20 10/02/20 00:33 01:03 01:34 Temperature Pulse Rate 100 H 104 H 95 H Respiratory Rate Blood Pressure 118/60 130/57 119/53 Blood Pressure [Right] O2 Sat by Pulse Oximetry 10/02/20 10/02/20 10/02/20 02:04 02:33 03:33 Temperature Pulse Rate 115 H 104 H 107 H Respiratory Rate Blood Pressure 122/58 129/59 130/58 Blood Pressure [Right] O2 Sat by Pulse Oximetry 10/02/20 10/02/20 10/02/20 04:03 04:53 05:03 Temperature Pulse Rate 115 H 90 88 Respiratory Rate Blood Pressure 130/79 117/59 111/58 Blood Pressure [Right] O2 Sat by Pulse Oximetry 10/02/20 10/02/20 10/02/20 05:34 06:03 06:33 Temperature Pulse Rate 85 110 H 103 H Respiratory Rate Blood Pressure 117/57 108/53 140/74 Blood Pressure [Right] O2 Sat by Pulse Oximetry 10/02/20 10/02/20 10/02/20 07:03 07:32 07:33 Temperature 97.9 F Pulse Rate 104 H 105 H 104 H Respiratory 16 Rate Blood Pressure 121/64 132/63 Blood Pressure 132/63 [Right] O2 Sat by Pulse 97 98 Oximetry 10/02/20 10/02/20 10/02/20 08:03 08:34 09:03 Temperature Pulse Rate 95 H 99 H 101 H Respiratory Rate Blood Pressure 134/65 143/87 133/64 Blood Pressure [Right] O2 Sat by Pulse Oximetry - Labs Labs: Abnormal Labs 09/30/20 09/30/20 09/30/20 10:40 10:40 10:40 RBC 3.37 L Hgb 10.0 L Hct 30.1 L RDW 13.0 L [place] % (Auto) 8.1 H Sodium 136 L BUN 3 L Creatinine 0.5 L Calcium 8.3 L Magnesium ALT Total Protein 6.1 L Albumin 3.4 L Urine pH 8.0 H Ur Total Protein 24 Hr 09/30/20 09/30/20 09/30/20 10:40 11:47 22:58 RBC 3.59 L Hgb Hct RDW [place] % (Auto) Sodium BUN Creatinine Calcium Magnesium 1.60 L 4.20 H ALT Total Protein Albumin Urine pH Ur Total Protein 24 Hr 10/01/20 10/01/20 10/01/20 06:47 12:02 13:05 RBC Hgb Hct RDW [place] % (Auto) Sodium BUN Creatinine Calcium Magnesium 4.70 H 4.70 H ALT Total Protein Albumin Urine pH Ur Total Protein 24 Hr 225.00 H 10/01/20 10/01/20 21:15 21:15 RBC 3.45 L Hgb Hct RDW [place] % (Auto) Sodium BUN Creatinine 0.4 L Calcium Magnesium ALT < 5 L Total Protein Albumin Urine pH Ur Total Protein 24 Hr Laboratory Results - last 24 hr 10/01/20 10/01/20 10/01/20 12:02 13:05 21:15 WBC 8.8 RBC 3.45 L Hgb 10.3 Hct 31.4 MCV 91 MCH 30 MCHC 33 RDW 13.2 Plt Count 208 Creatinine Estimated GFR Magnesium 4.70 H AST ALT Lactate Dehydrogenase Urine Total Volume 4500 Ur Total Protein 24 Hr 225.00 H Urine Total Protein 5 10/01/20 21:15 WBC RBC Hgb Hct MCV MCH MCHC RDW Plt Count Creatinine 0.4 L Estimated GFR > 60 Magnesium AST 13 ALT < 5 L Lactate Dehydrogenase 152 Urine Total Volume Ur Total Protein 24 Hr Urine Total Protein
[2020-10-02 09:47] VITALS: BP 148/70
--- NOTE | 2020-10-14 12:36 | Discharge Summary ---
Providers - Providers Date of Admission: 09/30/20 10:00 Date of discharge: 10/02/20 Attending physician: JANELLE LOWRY MD 09/30/20 11:48 Consult to Physician [CONS] Routine Comment: Consulting Provider: JANELLE LOWRY Physician Instructions: [facility] consult Reason For Exam: preeclampsia, Primary care physician: JANELLE LOWRY MD Hospitalization Reason for admission: other (GHTN r/out preeclampsia) Condition at discharge: Stable Disposition: DC- TO HOME OR SELFCARE Plan - Discharge Medications Prescriptions: labetaloL [Labetalol 200mg TAB] 200 mg PO BID #60 tablet - Provider Discharge Summary Activity: routine Diet: routine Instructions: routine Additional instructions: [] Smoking cessation referral if applicable(refer to patient education folder for contact #) [] Refer to [facility] Booklet Call your doctor immediately for: * Fever > 100.5 * Heavy vaginal bleeding ( >1 pad per hour) * Severe persistent headache * Shortness of breath * Reddened, hot, painful area to leg or breast * Drainage or odor from incision. * Keep incision clean and dry at all times and follow doctor's instructions regarding bathing/showering - Follow up plan Follow up: JANELLE LOWRY MD [Primary Care Provider] - 7 Days
== END 2020-10-02 10:13 | disposition home or self-care (01) | DRG 781 ==
LOC: TRG 09:59 → LD 10:00 → APU 10:00 → TRG 13:24
PROVIDERS: ADMIT Obstetrics & Gynecology; ATTEND Obstetrics & Gynecology
DX: O13.3 Gestational [pregnancy-induced] hypertension without significant proteinuria, third trimester (principal); O99.013 Anemia complicating pregnancy, third trimester; O99.213 Obesity complicating pregnancy, third trimester; Z20.822 Contact with and (suspected) exposure to COVID-19; Z88.6 Allergy status to analgesic agent; Z88.8 Allergy status to other drugs, medicaments and biological substances; Z3A.30 30 weeks gestation of pregnancy; E66.01 Morbid (severe) obesity due to excess calories; D64.9 Anemia, unspecified
CPT/HCPCS: 36415; 76705; 76805; 76819; 76820; 80053; 81001; 82565; 83615; 83735; 84156; 84450; 84460; 85025; 85027; 86850; 86900; 86901; G0378; J0702; J2060; J2270; J2765; J3475; J7120; U0003

== ENCOUNTER 2020-10-25 08:39 | Outpatient (CLI) | payer MEDICAID ==
[2020-10-25] MEDS ORDERED: PROMETHAZINE 25 MG RECT SUPP PR NR (10:15)
[2020-10-25] MEDS ORDERED: PANTOPRAZOLE 40 MG TAB PO NR (10:16)
[2020-10-25] MEDS ORDERED: LACTATED RINGERS 1,000 ML IV ONE (10:30)
[2020-10-25 12:54] VITALS: BP 136/64
== END 2020-10-25 14:00 | disposition home or self-care (01) ==
LOC: TRG 08:39 → APU 08:41 → TRG 14:00
PROVIDERS: ATTEND Obstetrics & Gynecology
DX: O26.893 Other specified pregnancy related conditions, third trimester (principal); R10.12 Left upper quadrant pain; Z3A.33 33 weeks gestation of pregnancy
CPT/HCPCS: 59025; 96360; 96361; J7120

== ENCOUNTER 2020-11-16 11:13 | Outpatient (CLI) | payer MEDICAID ==
[2020-11-16] MEDS ORDERED: LACTATED RINGERS 1,000 ML IV ONE (12:00)
[2020-11-16 12:44] LABS: Bilirubin,Urine NEG (Negative); Blood,Urine SM (Negative); Color,Urine Yellow (Yellow); Protein,Urine <15 mg/dL mg/dL (Negative); Urobilinogen,Urine < 2.0 mg/dL (<2.0)
[2020-11-16] MEDS ORDERED: PROMETHAZINE 25 MG RECT SUPP PR ONE (13:07)
[2020-11-16 13:49] LABS: Hematocrit 31.9 % (30.3-42.9); Hemoglobin 10.6 gm/dl (10.1-14.3); Mean Corpuscular HGB Conc 33 % (30-34); Mean Corpuscular Volume 87 fl (79-97); Platelet Count 183 K/mm3 (140-440); Red Blood Count 3.68 M/mm3 (3.65-5.03); Red Cell Distribution Width 13.2 % (13.2-15.2)
[2020-11-16 14:13] LABS: Alanine Aminotransferase 8 units/L (7-56); Uric Acid 3.2 mg/dL (3.5-7.6)
[2020-11-16 14:50] VITALS: BP 143/81
== END 2020-11-16 13:30 | disposition home or self-care (01) ==
LOC: TRG 11:13 → APU 11:21 → TRG 13:30
DX: Z34.93 Encounter for supervision of normal pregnancy, unspecified, third trimester (principal); Z3A.36 36 weeks gestation of pregnancy
CPT/HCPCS: 36415; 59025; 81001; 82565; 83615; 84450; 84460; 84550; 85027

== ENCOUNTER 2020-11-18 20:48 | Inpatient (IN) | payer MEDICAID ==
[2020-11-18] MEDS ORDERED: AMPICILLIN/NS 2 GM/100 ML 2 GM/100 ML BAG IV ONE (22:00)
[2020-11-18] MEDS ORDERED: ePHEDrine SULFATE 50 MG/1 ML INJ IV PRN (22:00)
[2020-11-18] MEDS ORDERED: METHYLERGONOVINE MALEATE 0.2 MG/ML VIAL IM PRN (22:00)
[2020-11-18] MEDS ORDERED: LACTATED RINGERS 1,000 ML IV SCH (22:00)
[2020-11-18] MEDS ORDERED: MINERAL OIL 30 ML ORAL LIQD PO PRN (22:00)
[2020-11-18] MEDS ORDERED: LIDOCAINE (2%) 20 MG/1 ML VIAL 20 ML MDV INFILTRATI ONE (22:00)
[2020-11-18] MEDS ORDERED: OXYTOCIN DRIP 30 UNITS/500 ML BAG IV SCH ×2 (22:00)
[2020-11-18] MEDS ORDERED: OXYTOCIN 10 UNIT/1 ML INJ IM PRN (22:00)
[2020-11-18] MEDS ORDERED: miSOPROStol 200 MCG TAB PR PRN (22:00)
[2020-11-18] MEDS ORDERED: CARBOPROST TROMETHAMINE 250 MCG/1 ML INJ IM PRN (22:00)
[2020-11-18] MEDS ORDERED: TERBUTALINE 1 MG/1 ML INJ SUB-Q PRN (22:00)
[2020-11-18] MEDS ORDERED: LOPERAMIDE 2 MG CAP PO PRN (22:00)
--- NOTE | 2020-11-18 22:07 | History and Physical Report ---
History of Present Illness Date of examination: 11/18/20 Date of admission: 11/18/20 20:57 Chief complaint: Here for induction of labor for hypertension. History of present illness: 30 year old presents to L&D for induction of labor due to hypertension. Patient receives care at [facility] and records are available. LMP 03/04/2020. EDC 12/09/2020. 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 labs are as follows: A+, antibody screen negative, rubella immune, hepatitis B surface antigen nonreactive, HIV negative, RPR nonreactive, HSV 2 positive, varicella nonimmune, gonorrhea negative, chlamydia negative, trichomonas negative, 1 hour sugar test 127, GBS unknown (no record on chart). Past History Past Medical History: other (obesity, vitamin D deficiency, history of preeclampsia, migraine) Past Surgical History: no surgical history [employer] [facility] History: herpes (no lesions or prodromal symptoms). denies: chlamydia, gonorrhea, hepatitis B, hepatitis C, HIV, syphilis, trichomonas Family/Genetic History: diabetes, heart disease, hypertension, cancer, other (schizophrenia, seizure disorder, renal failure, gallstones, lyphoma, colon cancer) Social history: lives with family, full code. denies: smoking, alcohol abuse, prescription drug abuse, IV drug use - Obstetrical History Expected Date of Delivery: 12/09/20 Actual Gestation: 37 Week(s) 0 Day(s) : 5 Para: 1 Hx # Term Pregnancies: 1 Number of Pregnancies: 2 Spontaneous Abortions: 0 Induced : 1 Number of Living Children: 3 Medications and Allergies Allergies Allergy/AdvReac Type Severity Reaction Status Date / Time ondansetron [From Zofran] Allergy Severe Rash Verified 09/30/20 16:28 butorphanol [From Stadol] AdvReac Severe Anaphylaxis Verified 09/30/20 16:28 tramadol AdvReac Severe Rash Verified 09/30/20 16:28 Home Medications Medication Instructions Recorded Confirmed Last Taken Type Aspirin [Aspirin BABY CHEW TAB] 81 mg PO QDAY 09/30/20 09/30/20 09/29/20 History 0800 Ferrous Sulfate [Ferrous Sulfate 1 tab PO DAILY 09/30/20 09/30/20 09/29/20 History 324 MG] 0800 No.137/Iron/Folic Acd 1 each PO DAILY 09/30/20 09/30/20 09/29/20 History [[facility] Tablet] 1999 labetaloL [Labetalol 200mg TAB] 200 mg PO BID #60 tablet 10/02/20 Unknown Rx Active Meds: Active Medications Carboprost Tromethamine (Carboprost Tromethamine 250 Mcg/1 Ml Inj) 250 mcg IM ONCE PRN PRN Reason: Uterine Bleeding Ephedrine Sulfate (Ephedrine Sulfate 50 Mg/1 Ml Inj) 10 mg IV Q2M PRN PRN Reason: Hypotension Oxytocin/Sodium Chloride (Pitocin/Ns 30 Unit/500ml) 30 units in 500 mls @ 2 mls/hr IV TITR TIANA; Protocol Lactated Ringer's (Lactated Ringers) 1,000 mls @ 125 mls/hr IV DIRECT TIANA Oxytocin/Sodium Chloride (Pitocin/Ns 30 Unit/500ml) 30 units in 500 mls @ 40 mls/hr IV TITR TIANA; Protocol Ampicillin Sodium (Ampicillin/Ns 2 Gm/100 Ml) 2 gm in 100 mls @ 100 mls/hr IV ONCE ONE; Protocol Stop: 11/18/20 22:59 Ampicillin Sodium (Ampicillin/Ns 1 Gm/50 Ml) 1 gm in 50 mls @ 100 mls/hr IV Q4H TIANA; Protocol Lidocaine (Lidocaine (2%) 20 Mg/1 Ml Vial 20 Ml Mdv) 20 ml INFILTRATI ONCE ONE Stop: 11/18/20 22:01 Loperamide HCl (Loperamide 2 Mg Cap) 2 mg PO ONCE PRN PRN Reason: give with Hemabate Mineral Oil (Mineral Oil 30 Ml Oral Liqd) 30 ml PO QHS PRN PRN Reason: Constipation Misoprostol (Misoprostol 200 Mcg Tab) 800 mcg UT ONCE PRN PRN Reason: Uterine Bleeding Oxytocin (Oxytocin 10 Unit/1 Ml Inj) 10 unit IM ONCE PRN PRN Reason: Uterine Bleeding Terbutaline Sulfate (Terbutaline 1 Mg/1 Ml Inj) 0.25 mg SUB-Q ONCE PRN PRN Reason: Hyperstimulation/Hypertonicity Review of Systems All systems: negative (occasional mild contraction) - Vital Signs Vital signs: Vital Signs Pulse BP 99 H 136/85 11/18/20 21:26 11/18/20 21:26 Temp Pulse Resp BP Pulse Ox 99.1 F 94 H 16 136/86 97 11/18/20 21:34 11/18/20 22:03 11/18/20 21:34 11/18/20 21:34 11/18/20 22:03 - Physical Exam Abdomen: Positive: normal appearance, soft. Negative: distention, tenderness, guarding, rigidity Genitourinary (Female): Positive: normal external genitalia, normal perenium. Negative: perineal/vulvar lesions (no lesions noted on careful exam with bright light upon admission) Vagina: Positive: normal moisture Uterus: Positive: enlarged. Negative: tender Anus/Rectum: Positive: normal perianal skin Extremities: Negative: tenderness, edema - Obstetrical FHR: category 1 Uterine Contraction Monitor Mode: External Cervical Dilatation: 3 Cervical Effacement Percentage: 70 station: -2 Uterine Contraction Pattern: Irregular Uterine Contraction Intensity: Mild Results All other labs normal. Assessment and Plan A: at 37 weeks gestation. Chronic hypertension. Obesity. GBS unknown. HSV 2 positive serology (no lesions or prodromal symptoms). P: Admit. Continuous EFM. GBS prophylaxis. Preeclamptic labs. Continue Valtrex suppression of HSV.
[2020-11-19 00:30] LABS: Hematocrit 29.6 % (30.3-42.9); Hemoglobin 10.2 gm/dl (10.1-14.3); Mean Corpuscular HGB Conc 34 % (30-34); Mean Corpuscular Volume 86 fl (79-97); Platelet Count 184 K/mm3 (140-440); Red Blood Count 3.44 M/mm3 (3.65-5.03); Red Cell Distribution Width 13.2 % (13.2-15.2)
[2020-11-19 00:43] LABS: Alanine Aminotransferase 10 units/L (7-56); Albumin 3.5 g/dL (3.9-5); Blood Urea Nitrogen 4 mg/dL (7-17); Calcium 8.8 mg/dL (8.4-10.2); Hemolysis Index 152
[2020-11-19 00:50] LABS: BUN/Creatinine Ratio 10
[2020-11-19 01:42] LABS: Uric Acid 3.6 mg/dL (3.5-7.6)
[2020-11-19] MEDS ORDERED: AMPICILLIN/NS 1 GM/50 ML 1 GM/50 ML BAG IV SCH (03:00)
--- NOTE | 2020-11-19 04:33 | Event Note ---
Date: 11/19/20 SVE -.
[2020-11-19] MEDS ORDERED: fentaNYL 100 MCG/2 ML INJ IV SCH (09:00)
--- NOTE | 2020-11-19 09:12 | Progress Note ---
Assessment and Plan CONTINUE INDUCTION. PT REFUSES EPIDURAL. Subjective Date of service: 11/19/20 Principal diagnosis: term ,PIH Objective - Constitutional Vitals: Vital Signs - 12hr 11/18/20 11/18/20 11/18/20 21:26 21:27 21:28 Temperature Pulse Rate 99 H 90 98 H Respiratory Rate Blood Pressure 136/85 Blood Pressure [Right] O2 Sat by Pulse 81 L 97 Oximetry 11/18/20 11/18/20 11/18/20 21:33 21:34 21:38 Temperature 99.1 F Pulse Rate 98 H 99 H 98 H Respiratory 16 Rate Blood Pressure Blood Pressure 136/86 [Right] O2 Sat by Pulse 98 98 97 Oximetry 11/18/20 11/18/20 11/18/20 21:43 21:48 21:53 Temperature Pulse Rate 98 H 92 H 103 H Respiratory Rate Blood Pressure Blood Pressure [Right] O2 Sat by Pulse 96 98 97 Oximetry 11/18/20 11/18/20 11/18/20 21:58 22:03 22:08 Temperature Pulse Rate 107 H 94 H 99 H Respiratory Rate Blood Pressure Blood Pressure [Right] O2 Sat by Pulse 96 97 97 Oximetry 11/18/20 11/18/20 11/18/20 22:13 22:18 22:23 Temperature Pulse Rate 96 H 93 H 98 H Respiratory Rate Blood Pressure Blood Pressure [Right] O2 Sat by Pulse 95 99 97 Oximetry 11/18/20 11/18/20 11/18/20 22:28 22:33 22:38 Temperature Pulse Rate 100 H 98 H 90 Respiratory Rate Blood Pressure Blood Pressure [Right] O2 Sat by Pulse 97 97 99 Oximetry 11/18/20 11/18/20 11/18/20 22:43 22:48 22:53 Temperature Pulse Rate 95 H 103 H 93 H Respiratory Rate Blood Pressure Blood Pressure [Right] O2 Sat by Pulse 97 97 99 Oximetry 11/18/20 11/18/20 11/18/20 22:58 23:03 23:08 Temperature Pulse Rate 92 H 93 H 96 H Respiratory Rate Blood Pressure Blood Pressure [Right] O2 Sat by Pulse 98 97 98 Oximetry 11/18/20 11/18/20 11/18/20 23:13 23:18 23:23 Temperature Pulse Rate 90 92 H 94 H Respiratory Rate Blood Pressure Blood Pressure [Right] O2 Sat by Pulse 97 98 99 Oximetry 11/18/20 11/18/20 11/18/20 23:28 23:33 23:38 Temperature Pulse Rate 94 H 99 H 93 H Respiratory Rate Blood Pressure Blood Pressure [Right] O2 Sat by Pulse 97 98 98 Oximetry 11/18/20 11/18/20 11/18/20 23:43 23:48 23:53 Temperature Pulse Rate 98 H 98 H 85 Respiratory Rate Blood Pressure Blood Pressure [Right] O2 Sat by Pulse 98 97 97 Oximetry 11/18/20 11/19/20 11/19/20 23:58 00:03 00:08 Temperature Pulse Rate 93 H 99 H 90 Respiratory Rate Blood Pressure Blood Pressure [Right] O2 Sat by Pulse 98 96 98 Oximetry 11/19/20 11/19/20 11/19/20 00:13 00:18 00:23 Temperature Pulse Rate 86 90 89 Respiratory Rate Blood Pressure Blood Pressure [Right] O2 Sat by Pulse 98 98 98 Oximetry 11/19/20 11/19/20 11/19/20 00:28 00:33 00:38 Temperature Pulse Rate 86 88 101 H Respiratory Rate Blood Pressure Blood Pressure [Right] O2 Sat by Pulse 97 97 96 Oximetry 11/19/20 11/19/20 11/19/20 00:43 00:55 01:00 Temperature Pulse Rate 114 H 125 H 100 H Respiratory Rate Blood Pressure Blood Pressure [Right] O2 Sat by Pulse 95 96 97 Oximetry 11/19/20 11/19/20 11/19/20 01:05 01:10 01:15 Temperature Pulse Rate 83 87 89 Respiratory Rate Blood Pressure Blood Pressure [Right] O2 Sat by Pulse 97 97 96 Oximetry 11/19/20 11/19/20 11/19/20 01:20 01:25 01:30 Temperature Pulse Rate 96 H 85 89 Respiratory Rate Blood Pressure Blood Pressure [Right] O2 Sat by Pulse 97 98 96 Oximetry 11/19/20 11/19/20 11/19/20 01:35 01:38 01:40 Temperature Pulse Rate 89 106 H 95 H Respiratory Rate Blood Pressure Blood Pressure [Right] O2 Sat by Pulse 97 93 95 Oximetry 11/19/20 11/19/20 11/19/20 01:43 01:45 01:50 Temperature Pulse Rate 94 H 85 94 H Respiratory Rate Blood Pressure Blood Pressure [Right] O2 Sat by Pulse 93 98 98 Oximetry 11/19/20 11/19/20 11/19/20 01:54 01:55 02:00 Temperature Pulse Rate 89 90 85 Respiratory Rate Blood Pressure Blood Pressure [Right] O2 Sat by Pulse 94 96 96 Oximetry 11/19/20 11/19/20 11/19/20 02:05 02:07 02:08 Temperature Pulse Rate 87 92 H 88 Respiratory Rate Blood Pressure 131/74 Blood Pressure [Right] O2 Sat by Pulse 95 94 Oximetry 11/19/20 11/19/20 11/19/20 02:10 02:13 02:15 Temperature Pulse Rate 91 H 112 H 94 H Respiratory Rate Blood Pressure 138/73 Blood Pressure [Right] O2 Sat by Pulse 92 94 96 Oximetry 11/19/20 11/19/20 11/19/20 02:18 02:20 02:24 Temperature Pulse Rate 92 H 110 H 85 Respiratory Rate Blood Pressure Blood Pressure [Right] O2 Sat by Pulse 93 95 88 Oximetry 11/19/20 11/19/20 11/19/20 02:25 02:29 02:30 Temperature Pulse Rate 100 H 87 113 H Respiratory Rate Blood Pressure Blood Pressure [Right] O2 Sat by Pulse 95 93 99 Oximetry 11/19/20 11/19/20 11/19/20 02:35 02:36 02:40 Temperature Pulse Rate 87 87 90 Respiratory Rate Blood Pressure Blood Pressure [Right] O2 Sat by Pulse 97 93 97 Oximetry 11/19/20 11/19/20 11/19/20 02:42 02:45 02:49 Temperature Pulse Rate 83 88 86 Respiratory Rate Blood Pressure 148/75 Blood Pressure [Right] O2 Sat by Pulse 94 97 94 Oximetry 11/19/20 11/19/20 11/19/20 02:50 02:55 03:00 Temperature Pulse Rate 89 91 H 90 Respiratory Rate Blood Pressure Blood Pressure [Right] O2 Sat by Pulse 93 95 95 Oximetry 11/19/20 11/19/20 11/19/20 03:01 03:05 03:07 Temperature Pulse Rate 92 H 90 91 H Respiratory Rate Blood Pressure Blood Pressure [Right] O2 Sat by Pulse 94 96 92 Oximetry 11/19/20 11/19/20 11/19/20 03:10 03:12 03:15 Temperature Pulse Rate 90 89 91 H Respiratory Rate Blood Pressure 137/75 Blood Pressure [Right] O2 Sat by Pulse 96 94 95 Oximetry 11/19/20 11/19/20 11/19/20 03:18 03:20 03:25 Temperature Pulse Rate 90 94 H 88 Respiratory Rate Blood Pressure Blood Pressure [Right] O2 Sat by Pulse 93 95 92 Oximetry 11/19/20 11/19/20 11/19/20 03:30 03:35 03:40 Temperature Pulse Rate 97 H 90 88 Respiratory Rate Blood Pressure Blood Pressure [Right] O2 Sat by Pulse 96 96 96 Oximetry 11/19/20 11/19/20 11/19/20 03:41 03:45 03:46 Temperature Pulse Rate 89 86 101 H Respiratory Rate Blood Pressure 156/80 Blood Pressure [Right] O2 Sat by Pulse 94 96 Oximetry 11/19/20 11/19/20 11/19/20 03:47 03:50 03:54 Temperature Pulse Rate 86 89 99 H Respiratory Rate Blood Pressure Blood Pressure [Right] O2 Sat by Pulse 92 96 90 Oximetry 11/19/20 11/19/20 11/19/20 03:55 03:59 04:00 Temperature Pulse Rate 110 H 92 H 86 Respiratory Rate Blood Pressure Blood Pressure [Right] O2 Sat by Pulse 100 94 100 Oximetry 11/19/20 11/19/20 11/19/20 04:05 04:10 04:15 Temperature Pulse Rate 87 100 H 88 Respiratory Rate Blood Pressure Blood Pressure [Right] O2 Sat by Pulse 100 99 99 Oximetry 11/19/20 11/19/20 11/19/20 04:16 04:19 04:20 Temperature Pulse Rate 93 H 89 95 H Respiratory Rate Blood Pressure 149/74 Blood Pressure [Right] O2 Sat by Pulse 92 97 Oximetry 11/19/20 11/19/20 11/19/20 04:25 04:30 04:35 Temperature Pulse Rate 90 101 H 97 H Respiratory Rate Blood Pressure Blood Pressure [Right] O2 Sat by Pulse 97 95 100 Oximetry 11/19/20 11/19/20 11/19/20 04:38 04:40 04:44 Temperature Pulse Rate 87 89 87 Respiratory Rate Blood Pressure Blood Pressure [Right] O2 Sat by Pulse 91 99 88 Oximetry 11/19/20 11/19/20 11/19/20 04:45 04:46 04:50 Temperature Pulse Rate 82 82 88 Respiratory Rate Blood Pressure 162/86 Blood Pressure [Right] O2 Sat by Pulse 98 100 Oximetry 11/19/20 11/19/20 11/19/20 05:02 05:07 05:12 Temperature Pulse Rate 115 H 86 88 Respiratory Rate Blood Pressure Blood Pressure [Right] O2 Sat by Pulse 98 99 98 Oximetry 11/19/20 11/19/20 11/19/20 05:16 05:17 05:18 Temperature Pulse Rate 98 H 85 85 Respiratory Rate Blood Pressure 138/78 Blood Pressure [Right] O2 Sat by Pulse 95 90 Oximetry 11/19/20 11/19/20 11/19/20 05:22 05:27 05:32 Temperature Pulse Rate 93 H 82 84 Respiratory Rate Blood Pressure Blood Pressure [Right] O2 Sat by Pulse 98 98 97 Oximetry 11/19/20 11/19/20 11/19/20 05:37 05:42 05:45 Temperature Pulse Rate 85 82 92 H Respiratory Rate Blood Pressure 138/67 Blood Pressure [Right] O2 Sat by Pulse 96 97 Oximetry 11/19/20 11/19/20 11/19/20 05:47 05:48 05:51 Temperature 98.3 F Pulse Rate 87 85 Respiratory Rate Blood Pressure Blood Pressure [Right] O2 Sat by Pulse 98 92 Oximetry 11/19/20 11/19/20 11/19/20 05:52 05:57 06:02 Temperature Pulse Rate 86 88 90 Respiratory Rate Blood Pressure Blood Pressure [Right] O2 Sat by Pulse 89 99 96 Oximetry 11/19/20 11/19/20 11/19/20 06:03 06:07 06:09 Temperature Pulse Rate 90 90 86 Respiratory Rate Blood Pressure Blood Pressure [Right] O2 Sat by Pulse 93 98 93 Oximetry 11/19/20 11/19/20 11/19/20 06:12 06:15 06:17 Temperature Pulse Rate 95 H 85 91 H Respiratory Rate Blood Pressure 152/81 Blood Pressure [Right] O2 Sat by Pulse 97 96 Oximetry 11/19/20 11/19/20 11/19/20 06:22 06:27 06:32 Temperature Pulse Rate 105 H 94 H 94 H Respiratory Rate Blood Pressure Blood Pressure [Right] O2 Sat by Pulse 98 97 98 Oximetry 11/19/20 11/19/20 11/19/20 06:37 06:38 06:42 Temperature Pulse Rate 95 H 89 88 Respiratory Rate Blood Pressure Blood Pressure [Right] O2 Sat by Pulse 98 92 97 Oximetry 11/19/20 11/19/20 11/19/20 06:45 06:47 06:49 Temperature Pulse Rate 89 89 96 H Respiratory Rate Blood Pressure 145/70 Blood Pressure [Right] O2 Sat by Pulse 98 94 Oximetry 11/19/20 11/19/20 11/19/20 06:52 06:57 06:58 Temperature Pulse Rate 87 87 89 Respiratory Rate Blood Pressure Blood Pressure [Right] O2 Sat by Pulse 98 96 94 Oximetry 11/19/20 11/19/20 11/19/20 07:02 07:05 07:07 Temperature Pulse Rate 88 89 92 H Respiratory Rate Blood Pressure Blood Pressure [Right] O2 Sat by Pulse 96 94 96 Oximetry 11/19/20 11/19/20 11/19/20 07:12 07:15 07:17 Temperature Pulse Rate 89 92 H 83 Respiratory Rate Blood Pressure 138/85 Blood Pressure [Right] O2 Sat by Pulse 97 96 Oximetry 11/19/20 11/19/20 11/19/20 07:21 07:22 07:27 Temperature Pulse Rate 109 H 89 85 Respiratory Rate Blood Pressure Blood Pressure [Right] O2 Sat by Pulse 94 98 97 Oximetry 11/19/20 11/19/20 11/19/20 07:32 07:37 07:40 Temperature Pulse Rate 82 90 99 H Respiratory Rate Blood Pressure Blood Pressure [Right] O2 Sat by Pulse 100 100 93 Oximetry 11/19/20 11/19/20 11/19/20 07:42 07:45 07:47 Temperature Pulse Rate 88 85 109 H Respiratory Rate Blood Pressure 141/91 Blood Pressure [Right] O2 Sat by Pulse 97 90 95 Oximetry 11/19/20 11/19/20 11/19/20 07:52 07:57 08:01 Temperature Pulse Rate 84 92 H 92 H Respiratory Rate Blood Pressure Blood Pressure [Right] O2 Sat by Pulse 100 100 85 Oximetry 11/19/20 11/19/20 11/19/20 08:02 08:07 08:14 Temperature Pulse Rate 110 H 106 H 106 H Respiratory Rate Blood Pressure Blood Pressure [Right] O2 Sat by Pulse 98 100 98 Oximetry 11/19/20 11/19/20 11/19/20 08:19 08:25 08:27 Temperature Pulse Rate 97 H 86 99 H Respiratory Rate Blood Pressure 141/77 Blood Pressure [Right] O2 Sat by Pulse 100 99 Oximetry 11/19/20 11/19/20 11/19/20 08:29 08:34 08:40 Temperature Pulse Rate 92 H 92 H 99 H Respiratory Rate Blood Pressure Blood Pressure [Right] O2 Sat by Pulse 99 99 100 Oximetry 11/19/20 11/19/20 11/19/20 08:45 08:46 08:50 Temperature Pulse Rate 92 H 91 H 93 H Respiratory Rate Blood Pressure 128/65 Blood Pressure [Right] O2 Sat by Pulse 96 100 Oximetry 11/19/20 11/19/20 11/19/20 08:55 09:00 09:01 Temperature Pulse Rate 102 H 102 H 92 H Respiratory Rate Blood Pressure Blood Pressure [Right] O2 Sat by Pulse 99 100 92 Oximetry 11/19/20 09:05 Temperature Pulse Rate 100 H Respiratory Rate Blood Pressure Blood Pressure [Right] O2 Sat by Pulse 100 Oximetry General appearance: Present: no acute distress, well-nourished - Genitourinary Female genitourinary: other (CX 4 CMS,5%,-3, AROM, FLUID CLEAR.) - Labs CBC & Chem 7: 11/18/20 22:33 11/18/20 22:33 Labs: Abnormal lab results 11/18/20 11/18/20 Range/Units 22:33 22:33 RBC 3.44 L (3.65-5.03) M/mm3 Hct 29.6 L (30.3-42.9) % Sodium 135 L (137-145) mmol/L Carbon Dioxide 21 L (22-30) mmol/L BUN 4 L (7-17) mg/dL Creatinine 0.4 L (0.6-1.2) mg/dL Lactate Dehydrogenase 321 H (91-180) units/L Albumin 3.5 L (3.9-5) g/dL Medications & Allergies - Medications Allergies/Adverse Reactions: Allergies ondansetron [From Zofran] Allergy (Severe, Verified 09/30/20 16:28) Rash butorphanol [From Stadol] Adverse Reaction (Severe, Verified 09/30/20 16:28) Anaphylaxis tramadol Adverse Reaction (Severe, Verified 09/30/20 16:28) Rash Home Medications: Home Medications Medication Instructions Recorded Confirmed Last Taken Type Aspirin [Aspirin BABY CHEW TAB] 81 mg PO QDAY 09/30/20 09/30/20 09/29/20 History 0800 Ferrous Sulfate [Ferrous Sulfate 1 tab PO DAILY 09/30/20 09/30/20 09/29/20 History 324 MG] 08 No.137/Iron/Folic Acd 1 each PO DAILY 09/30/20 09/30/20 09/29/20 History [[facility] Tablet] 1999 labetaloL [Labetalol 200mg TAB] 200 mg PO BID #60 tablet 10/02/20 Unknown Rx Active Medications: Generic Name Dose Route Start Last Admin Trade Name Freq PRN Reason Stop Dose Admin Carboprost Tromethamine 250 mcg 11/18/20 22:00 Carboprost Tromethamine 250 Mcg/1 Ml Inj IM ONCE PRN Uterine Bleeding Ephedrine Sulfate 10 mg 11/18/20 22:00 Ephedrine Sulfate 50 Mg/1 Ml Inj IV Q2M PRN Hypotension Oxytocin/Sodium Chloride 30 units in 500 mls @ 2 mls/hr 11/18/20 22:00 11/19/20 08:34 Pitocin/Ns 30 Unit/500ml IV 10 mls/hr TITR TIANA 10 mls/hr Titration Protocol Lactated Ringer's 1,000 mls @ 125 mls/hr 11/18/20 22:00 11/19/20 08:34 Lactated Ringers IV 125 mls/hr DIRECT TIANA Administration Oxytocin/Sodium Chloride 30 units in 500 mls @ 40 mls/hr 11/18/20 22:00 Pitocin/Ns 30 Unit/500ml IV TITR TIANA Protocol Ampicillin Sodium 1 gm in 50 mls @ 100 mls/hr 11/19/20 03:00 11/19/20 05:46 Ampicillin/Ns 1 Gm/50 Ml IV 100 mls/hr Q4H TIANA Administration Protocol Loperamide HCl 2 mg 11/18/20 22:00 Loperamide 2 Mg Cap PO ONCE PRN give with Hemabate Mineral Oil 30 ml 11/18/20 22:00 Mineral Oil 30 Ml Oral Liqd PO QHS PRN Constipation Misoprostol 800 mcg 11/18/20 22:00 Misoprostol 200 Mcg Tab NJ ONCE PRN Uterine Bleeding Oxytocin 10 unit 11/18/20 22:00 Oxytocin 10 Unit/1 Ml Inj IM ONCE PRN Uterine Bleeding Terbutaline Sulfate 0.25 mg 11/18/20 22:00 Terbutaline 1 Mg/1 Ml Inj SUB-Q ONCE PRN Hyperstimulation/Hypertonicity Valacyclovir HCl 500 mg 11/18/20 23:00 Valacyclovir 500 Mg Tab PO BID TIANA
[2020-11-19] MEDS ORDERED: fentaNYL 100 MCG/2 ML INJ IV PRN (09:23)
[2020-11-19] MEDS ORDERED: LACTATED RINGERS 250 ML IV SOLN IV ONE (09:37)
[2020-11-19] MEDS ORDERED: diphenhydrAMINE 50 MG/ML VIAL IV PRN (09:37)
[2020-11-19] MEDS ORDERED: ONDANSETRON 4 MG/2 ML INJ IV PRN (09:37)
[2020-11-19] MEDS ORDERED: NALOXONE 2 MG/2 ML INJ IV PRN (09:37)
[2020-11-19] MEDS ORDERED: ePHEDrine SULFATE 50 MG/1 ML INJ IV PRN (09:37)
[2020-11-19] MEDS ORDERED: NalbUPHINE 10 MG/1 ML INJ IV PRN (09:37)
[2020-11-19] MEDS ORDERED: fentaNYL-BUPIV 2 MCG/ML-0.125% 200 MCG/100 ML BAG EPIDURAL SCH (10:00)
[2020-11-19] MEDS ORDERED: hydrALAZINE 20 MG/1 ML INJ IV PRN (11:51)
[2020-11-19] MEDS: valACYclovir 500 MG TAB PO SCH ×2 (12:00→21:41)
[2020-11-19] MEDS: IBUPROFEN 800 MG TAB PO PRN ×2 (12:00→21:41)
[2020-11-20 00:27] LABS: Hematocrit 26.9 % (30.3-42.9); Hemoglobin 9.4 gm/dl (10.1-14.3)
[2020-11-20] MEDS: IBUPROFEN 800 MG TAB PO PRN ×2 (04:54→21:18)
[2020-11-20] MEDS: valACYclovir 500 MG TAB PO SCH ×3 (10:04→21:19)
--- NOTE | 2020-11-20 17:23 | Progress Note ---
Assessment and Plan A: day 1 S/P . Anemia. Hypertension. P: Supplement with oral iron. Continue Labetalol 200 mg po BID. Routine care. Subjective - Subjective Date of service: 11/20/20 Principal diagnosis: day 1 S/P Patient reports: appetite normal, voiding normally, pain well controlled, flatus, ambulating normally, no dizzy ambulation, no nauseated : doing well Objective - Vital Signs Latest vital signs: Vital Signs Temp Pulse Resp BP BP Pulse Ox 11/20/20 16:00 98.1 F 83 20 139/84 11/20/20 12:06 98.0 F 92 H 20 145/89 98 11/20/20 10:03 92 H 11/20/20 08:00 98.0 F 92 H 18 148/80 98 11/20/20 04:30 83 144/89 99 11/20/20 01:08 97.8 F 81 20 124/68 97 11/19/20 21:40 143/81 11/19/20 21:30 82 143/81 97 Intake and Output 11/20/20 11/20/20 11/20/20 07:59 15:59 23:59 Intake Total 480 Balance 480 Intake: Oral 480 Other: Total, Intake Amount 240 - Exam Cardiovascular: Present: Regular rate Lungs: Present: Clear to auscultation Abdomen: Present: normal appearance, soft. Absent: distention, tenderness, guarding, rigidity Uterus: Present: normal, firm, fundal height below umbilicus. Absent: bogginess, tenderness Extremities: Present: normal. Absent: tenderness - Labs Labs: Abnormal lab results 11/19/20 Range/Units 23:42 Hgb 9.4 L (10.1-14.3) gm/dl Hct 26.9 L (30.3-42.9) %
[2020-11-20] MEDS: FERROUS SULFATE 325 MG TAB PO SCH (21:19)
[2020-11-21] MEDS: IBUPROFEN 800 MG TAB PO PRN (06:19)
[2020-11-21] MEDS: valACYclovir 500 MG TAB PO SCH (09:36)
[2020-11-21] MEDS: FERROUS SULFATE 325 MG TAB PO SCH (09:37)
[2020-11-21 09:39] VITALS: BP 157/78
--- NOTE | 2020-11-21 11:58 | Progress Note ---
Assessment and Plan - Patient Problems (1) state Current Visit: Yes Status: Acute Plan to address problem: Meeting goals. Anticipate discharge pending improvement of BPs. (2) Chronic hypertension Current Visit: Yes Status: Acute Plan to address problem: --PIH labs wnl. Currently on labetolol 200mg BID. --Increase labetolol to 300mg BID. Titrate as indicated --Dispo pending improvement of BPs Subjective - Subjective Date of service: 11/21/20 Principal diagnosis: day 2 S/P , CHTN Interval history: Patient reports have BPs in 150s. Says that she has needed to stay in hospital for multiple days/week after previous 2 deliveries. Denies having BP issues outside of , but didn't routinely check. Denies PIH symptoms today. Patient reports: appetite normal, voiding normally, pain well controlled, flatus [place]: doing well Objective - Vital Signs Latest vital signs: Vital Signs Temp Pulse Resp BP BP Pulse Ox 11/21/20 09:36 85 150/78 11/21/20 08:30 97.8 F 78 20 157/78 11/21/20 04:59 98.0 F 79 18 150/78 98 11/20/20 23:45 98.0 F 66 18 131/65 98 11/20/20 21:51 98.0 F 79 18 163/83 99 11/20/20 16:00 98.1 F 83 20 139/84 11/20/20 12:06 98.0 F 92 H 20 145/89 98 Intake and Output 11/20/20 11/21/20 11/21/20 23:59 07:59 15:59 Intake Total 1380 200 240 Balance 1380 200 240 Intake: Oral 480 200 240 Intake, Free Water 900 Other: Total, Intake Amount 480 200 240 # Voids Void 1 1 # Bowel Movements 1 - Exam Cardiovascular: Present: Regular rate Lungs: Present: Clear to auscultation Abdomen: Present: normal appearance, normal bowel sounds Extremities: Present: normal
--- NOTE | 2020-11-21 16:11 | Discharge Summary ---
Providers - Providers Date of Admission: 11/18/20 20:57 Date of discharge: 11/21/20 Attending physician: SEDRICK CHAVEZ MD Primary care physician: JANELLE LOWRY MD Hospitalization Reason for admission: IUP at term, other (CHTN) Delivery: Discharge diagnosis: IUP at term delivered Hospital course: Patient with induction of labor chronic hypertension at term on labetalol 200 twice daily. Status post uncomplicated vaginal delivery on 11/19/2020. Patient mildly elevated pressures throughout the and delivery course. Given blood pressures still 150s systolic on day 2, plan was to titrate blood pressure management less than 140 systolic. However patient desired to leave AGAINST MEDICAL ADVICE and did on 11/21/20. Condition at discharge: Fair Disposition: [id number] LEFT AGAINST MED ADVICE - Discharge Diagnoses (1) state Status: Acute (2) Chronic hypertension Status: Acute Plan - Provider Discharge Summary Activity: routine Diet: routine Instructions: routine Additional instructions: [] Smoking cessation referral if applicable(refer to patient education folder for contact #) [] Refer to [facility]'s [facility] Booklet Call your doctor immediately for: * Fever > 100.5 * Heavy vaginal bleeding ( >1 pad per hour) * Severe persistent headache * Shortness of breath * Reddened, hot, painful area to leg or breast * Drainage or odor from incision. * Keep incision clean and dry at all times and follow doctor's instructions regarding bathing/showering - Follow up plan Follow up: JANELLE LOWRY MD [Primary Care Provider] - 7 Days
--- NOTE | 2020-11-22 08:45 | Procedure Note ---
Date of procedure: 11/19/20 Pre-op diagnosis: term , labor Post-op diagnosis: same Procedure: , LIVE BORN FEMALE.WGT 5'11", 8,9. PLACENTA DELIVERED. RECTAL MUCOSA INTACT. Anesthesia: none Surgeon: SEDRICK CHAVEZ Estimated blood loss: other (250CCS) Pathology: none Specimen disposition: discarded Condition: stable Disposition: floor
== END 2020-11-21 15:00 | disposition left against medical advice (07) | DRG 774 ==
LOC: TRG 20:48 → LD 20:50 → TRG 20:53 → LD 20:57 → OB 11-19 14:03
PROVIDERS: ADMIT Obstetrics & Gynecology
PROC: 10E0XZZ Delivery of Products of Conception, External Approach (ICD-10-PCS; principal; 2020-11-19)
DX: O10.92 Unspecified pre-existing hypertension complicating childbirth (principal); O98.32 Other infections with a predominantly sexual mode of transmission complicating childbirth; Z53.29 Procedure and treatment not carried out because of patient's decision for other reasons; Z20.822 Contact with and (suspected) exposure to COVID-19; A60.09 Herpesviral infection of other urogenital tract; O99.354 Diseases of the nervous system complicating childbirth; O99.214 Obesity complicating childbirth; O99.02 Anemia complicating childbirth; Z83.3 Family history of diabetes mellitus; Z80.9 Family history of malignant neoplasm, unspecified; Z3A.37 37 weeks gestation of pregnancy; Z37.0 Single live birth; Z84.1 Family history of disorders of kidney and ureter; Z82.0 Family history of epilepsy and other diseases of the nervous system; Z84.89 Family history of other specified conditions; Z88.8 Allergy status to other drugs, medicaments and biological substances; Z79.899 Other long term (current) drug therapy
CPT/HCPCS: 36415; 59025; 80053; 81001; 82565; 83615; 84450; 84460; 84550; 85014; 85018; 85027; 86592; 86850; 86900; 86901; 96360; G0378; J0290; J2590; J7120; U0003

== ENCOUNTER 2021-09-02 03:08 | Outpatient (CLI) | payer MEDICAID ==
[2021-09-02] MEDS ORDERED: LACTATED RINGERS 500 ML IV ONE (03:37)
[2021-09-02] MEDS ORDERED: ONDANSETRON 4 MG/2 ML INJ IM ONE (03:40)
[2021-09-02 04:33] LABS: Basophils % (Auto) 0.4 % (0.0-1.8); Eosinophils % (Auto) 0.4 % (0.0-4.3); Hematocrit 33.8 % (30.3-42.9); Hemoglobin 11.3 gm/dl (10.1-14.3); Lymphocytes % (Auto) 15.5 % (13.4-35.0); Mean Corpuscular HGB Conc 33 % (30-34); Mean Corpuscular Volume 90 fl (79-97); Monocytes # (Auto) 0.4 K/mm3 (0.0-0.8); Monocytes % (Auto) 5.7 % (0.0-7.3); Platelet Count 180 K/mm3 (140-440); Red Blood Count 3.76 M/mm3 (3.65-5.03); Red Cell Distribution Width 13.9 % (13.2-15.2)
[2021-09-02 04:43] LABS: Alanine Aminotransferase 6 units/L (7-56); Albumin 3.6 g/dL (3.9-5); Blood Urea Nitrogen 5 mg/dL (7-17); Calcium 8.8 mg/dL (8.4-10.2); Hemolysis Index 10
[2021-09-02 04:54] LABS: BUN/Creatinine Ratio 10
[2021-09-02 05:04] LABS: Bacteria,Urine 1+ /HPF (Negative); Bilirubin,Urine NEG (Negative); Blood,Urine NEG (Negative); Color,Urine Amber (Yellow); Mucus,Urine 3+ /HPF
[2021-09-02 05:06] LABS: Protein,Urine >500 mg/dL (Negative)
--- NOTE | 2021-09-02 05:25 | Ultrasound Report ---
Ultrasound obstetric: Limited INDICATION: Abdominal pain FINDINGS: Single living intrauterine with heart rate of [address] measures 22 weeks and 6 days. Abdominal circumference and femur length measure 22 weeks and 3 day s and 18 weeks and 3 days respectively. IMPRESSION: Single living intrauterine with ultrasound gestational age of 21 weeks and 4 da ys. Signer Name: Billy Carreon MD Signed: 09/02/2021 5:21 AM Workstation Name: [email or web address]
[2021-09-02] MEDS ORDERED: METOCLOPRAMIDE 10 MG/2 ML INJ IV ONE (06:11)
[2021-09-02] MEDS ORDERED: ACETAMINOPHEN 500 MG TAB PO ONE (06:12)
[2021-09-02 07:55] VITALS: BP 133/71
== END 2021-09-02 08:23 | disposition home or self-care (01) ==
LOC: TRG 03:08 → APU 03:11 → TRG 08:23
PROVIDERS: ATTEND Obstetrics & Gynecology
DX: O21.2 Late vomiting of pregnancy (principal); O13.2 Gestational [pregnancy-induced] hypertension without significant proteinuria, second trimester; Z3A.22 22 weeks gestation of pregnancy
CPT/HCPCS: 36415; 59025; 76816; 80053; 81001; 85025; 96374; J2765; 76815; 96360; 96361

== ENCOUNTER 2021-12-10 12:35 | Inpatient (IN) | payer MEDICAID ==
[2021-12-10] MEDS ORDERED: LACTATED RINGERS 1,000 ML IV ONE (13:37)
[2021-12-10 14:14] LABS: Hemoglobin 10.3 gm/dl (10.1-14.3); Mean Corpuscular HGB Conc 33 % (30-34); Mean Corpuscular Volume 87 fl (79-97); Platelet Count 173 K/mm3 (140-440); Red Blood Count 3.55 M/mm3 (3.65-5.03); Red Cell Distribution Width 13.5 % (13.2-15.2)
[2021-12-10 14:19] LABS: Bilirubin,Urine NEG (Negative); Blood,Urine NEG (Negative); Color,Urine Yellow (Yellow); Protein,Urine <15 mg/dL mg/dL (Negative); Urobilinogen,Urine < 2.0 mg/dL (<2.0)
[2021-12-10 14:23] LABS: Bacteria,Urine 1+ /HPF (Negative); Mucus,Urine FEW /HPF
[2021-12-10 14:40] LABS: Alanine Aminotransferase 6 units/L (7-56); Uric Acid 3.8 mg/dL (3.5-7.6)
--- NOTE | 2021-12-10 16:50 | History and Physical Report ---
History of Present Illness Date of examination: 12/10/21 Date of admission: 12/10/21 Chief complaint: Pt was advised by her OB on 12/09/21 to go to [facility] OB triage r/t elevated b/ps. History of present illness: 31 y/o @ 36.6 wks was advised to go to [facility] on 12/09/21 for an evaluation of her b/ps. Pt arrived today with elevated b/ps and c/o green. She stated she did not take her 200mg of Labetalol today. Pt initiated her pnc @ 12 5/7 wks @ [facility] and was co-managed by [facility] r/t CHTN. She has a hx of HSV II, CHTN, and closely spaced preg. She had 2 PTD r/t elevated b/ps. Her last delivery was 06/28/21. Pt was admitted to L&D and started on MgSo4. Dr Donald was consulted. Past History Past Medical History: hypertension Past Surgical History: no surgical history Family/Genetic History: none Social history: no significant social history, single, full code - Obstetrical History Expected Date of Delivery: 01/15/22 Actual Gestation: 34 Week(s) 6 Day(s) : 6 Para: 4 Hx # Term Pregnancies: 2 Number of Pregnancies: 2 Spontaneous Abortions: 1 Induced : 0 Number of Living Children: 4 Medications and Allergies Allergies Allergy/AdvReac Type Severity Reaction Status Date / Time ondansetron [From Zofran] Allergy Severe Rash Verified 09/30/20 16:28 butorphanol [From Stadol] AdvReac Severe Anaphylaxis Verified 09/30/20 16:28 tramadol AdvReac Severe Rash Verified 09/30/20 16:28 Home Medications Medication Instructions Recorded Confirmed Last Taken Type Aspirin [Aspirin BABY CHEW TAB] 81 mg PO QDAY 09/30/20 11/19/20 09/29/20 History 0800 Ferrous Sulfate [Ferrous Sulfate 1 tab PO DAILY 09/30/20 11/19/20 09/29/20 History 324 MG] 0800 No.137/Iron/Folic Acd 1 each PO DAILY 09/30/20 11/19/20 09/29/20 History [[facility] Tablet] 1999 labetaloL [Labetalol 200mg TAB] 200 mg PO BID #60 tablet 10/02/20 11/19/20 Unknown Rx Metoclopramide [Reglan] 10 mg PO QID PRN 15 Days #60 tab 09/02/21 Unknown Rx Nitrofurantoin [place]/M-Cryst 100 mg PO Q12HR 7 Days #14 capsule 09/02/21 Unknown Rx [Macrobid CAP] Review of Systems All systems: negative Eyes: deferred Ears, nose, mouth and throat: deferred Cardiovascular: high blood pressure Breasts: normal Genitourinary: normal appearance Rectal Exam: deferred - Vital Signs Vital signs: Vital Signs Pulse Pulse Ox 92 H 98 12/10/21 12:55 12/10/21 12:55 Temp Pulse Resp BP Pulse Ox 101 H 172/95 96 12/10/21 16:33 12/10/21 16:27 12/10/21 16:33 - Physical Exam Breasts: Positive: normal Cardiovascular: Regular rate Lungs: Positive: Clear to auscultation Abdomen: Positive: normal appearance, soft, normal bowel sounds Genitourinary (Female): Positive: normal external genitalia, normal perenium Vulva: both: normal Vagina: Positive: normal moisture Uterus: Positive: enlarged, normal contour, other (gravid) Adnexa: both: normal Anus/Rectum: Positive: normal perianal skin Extremities: Positive: normal - Obstetrical FHR: auscultation normal, category 1 Uterine Contraction Monitor Mode: External Cervical Dilatation: 4 (per nurse) Cervical Effacement Percentage: 70 station: -3 Uterine Contraction Pattern: Absent Uterine Tone Measurement Phase: Resting Results Result Diagrams: 12/10/21 13:57 12/10/21 13:57 Abnormal lab results 12/10/21 12/10/21 Range/Units 13:57 13:57 RBC 3.55 L (3.65-5.03) M/mm3 Creatinine 0.4 L (0.6-1.2) mg/dL ALT 6 L (7-56) units/L All other labs normal. Assessment and Plan A: IUP@ 36.6 wks with CHTN HSV II Closely spaced preg Neg GBS Hx of PTD X2 r/t elevated b/ps P: Admit to L&D Continuous monitoring Start MgSo4 as ordered Start Pitocin augmentation of labor after 12mn Consulted Dr Donald - Patient Problems (1) Supervision of normal IUP (intrauterine ) in multigravida Current Visit: Yes Status: Acute (2) Chronic hypertension affecting Current Visit: Yes Status: Acute (3) HSV antigen DIF positive Current Visit: Yes Status: Acute
[2021-12-10] MEDS ORDERED: OXYTOCIN 10 UNIT/1 ML INJ IM PRN (17:50)
[2021-12-10] MEDS ORDERED: METHYLERGONOVINE MALEATE 0.2 MG/ML VIAL IM PRN (17:50)
[2021-12-10] MEDS ORDERED: fentaNYL 100 MCG/2 ML INJ IV PRN (17:50)
[2021-12-10] MEDS ORDERED: TERBUTALINE 1 MG/1 ML INJ SUB-Q PRN (17:50)
[2021-12-10] MEDS ORDERED: miSOPROStol 200 MCG TAB PR PRN (17:50)
[2021-12-10] MEDS ORDERED: MINERAL OIL 30 ML ORAL LIQD PO PRN (17:50)
[2021-12-10] MEDS ORDERED: ePHEDrine SULFATE 50 MG/1 ML INJ IV PRN (17:50)
[2021-12-10] MEDS ORDERED: LOPERAMIDE 2 MG CAP PO PRN (17:50)
[2021-12-10] MEDS ORDERED: CARBOPROST TROMETHAMINE 250 MCG/1 ML INJ IM PRN (17:50)
[2021-12-10] MEDS ORDERED: LIDOCAINE (2%) 20 MG/1 ML VIAL 20 ML MDV INFILTRATI ONE (17:50)
[2021-12-10] MEDS ORDERED: OXYTOCIN DRIP 30 UNITS/500 ML BAG IV SCH ×2 (18:00)
[2021-12-10] MEDS ORDERED: MAGNESIUM SULFATE 4 GM/100 ML BAG IV ONE (18:04)
[2021-12-10] MEDS: LACTATED RINGERS 1,000 ML IV SCH (18:38)
[2021-12-10] MEDS: MAGNESIUM SULFATE 40GM/1000ML 40 GM/1,000 ML BAG IV SCH (19:32)
[2021-12-10 22:23] LABS: Hematocrit 29.6 % (30.3-42.9); Hemoglobin 9.7 gm/dl (10.1-14.3)
[2021-12-10] MEDS: ACETAMINOPHEN 325 MG TAB PO PRN (22:38)
[2021-12-11] MEDS: ACETAMINOPHEN 325 MG TAB PO PRN (05:00)
[2021-12-11] MEDS ORDERED: oxyCODONE /ACETAMINOPHEN 5-325MG TAB PO PRN (06:55)
[2021-12-11] MEDS ORDERED: LANOLIN/ZINC/DIMETHICONE (LANSINOH) 7 GM TP PRN (06:55)
[2021-12-11] MEDS ORDERED: diphenhydrAMINE 25 MG CAP PO PRN (06:55)
[2021-12-11] MEDS ORDERED: ACETAMINOPHEN 325 MG TAB PO PRN (06:55)
[2021-12-11] MEDS ORDERED: PROMETHAZINE 25 MG RECT SUPP PR PRN (07:00)
[2021-12-11] MEDS ORDERED: IBUPROFEN 800 MG TAB PO SCH (07:00)
--- NOTE | 2021-12-11 07:18 | Procedure Note ---
OB Delivery Note - Vaginal Delivery presentation: vertex Delivery position: OA Intrapartum events: other(please specify) (chtn) Delivery induction: none Delivery augmentation: pitocin Delivery monitor: external FHT, external uterine Route of delivery: Delivery placenta: spontaneous Delivery cord: 3 umbilical vessels Episiotomy: none Delivery laceration: none Anesthesia: none Delivery comments: Called to for delivery. Upon arrival baby had just been delivered by nurse. of a viable male infant over an intact perineum. Infant to mom's chest for maternal bonding. Delayed cord clamping x 1 min then cord was clamped and FOB was allowed to cut the cord. Spontaneous delivery of an intact placenta with 3CV. FF below U with fundal massage and IV Pitocin. QBL 50 cc. 8/9. Mom and baby were left in stable condition with nurse. - A at 1 minute: 8 at 5 minutes: 9 Gender: Male
[2021-12-11] MEDS ORDERED: WITCH HAZEL/ GLYCERIN PAD TP PRN (07:30)
[2021-12-11] MEDS ORDERED: PRENATAL VIT27-FE FUMARATE-FOLIC ACID VIT TAB PO SCH (10:00)
[2021-12-11] MEDS ORDERED: hydrALAZINE 20 MG/1 ML INJ IV NR (17:01)
--- NOTE | 2021-12-11 18:11 | Event Note ---
Date: 12/11/21 pt evaluated and sitting out in bed. pt states that she has no headache and her swelling is much improved compared to yesterday. pt also states that she plans to sign out AMA tomorrow when her mag is complete because her BP will never go down here. Pt states that she signed out AMA with her last and she was fine. Pt had lab drawn now and will complete mag sulfate in the AM (24hrs). Pt encouraged to allow us to treat her most likely chronic HTN prior to discharge. Pt given labetalol 20mg IV with no response. Pt also given IV hydrallazine 10mg. Will adjust labetalol to 300mg every 8hrs. All questions encouraged and answered. Pt is determined to leave.
[2021-12-11 19:12] LABS: Basophils % (Auto) 0.3 % (0.0-1.8); Eosinophils % (Auto) 0.3 % (0.0-4.3); Hematocrit 30.9 % (30.3-42.9); Hemoglobin 10.1 gm/dl (10.1-14.3); Lymphocytes # (Auto) 1.3 K/mm3 (1.2-5.4); Lymphocytes % (Auto) 13.9 % (13.4-35.0); Mean Corpuscular HGB Conc 33 % (30-34); Mean Corpuscular Volume 88 fl (79-97); Monocytes # (Auto) 0.6 K/mm3 (0.0-0.8); Monocytes % (Auto) 6.1 % (0.0-7.3); Platelet Count 193 K/mm3 (140-440); Red Blood Count 3.51 M/mm3 (3.65-5.03)
[2021-12-11 20:03] LABS: Alanine Aminotransferase 6 units/L (7-56); Albumin 3.2 g/dL (3.9-5); Calcium 8.6 mg/dL (8.4-10.2); Hemolysis Index 4
[2021-12-11 20:58] LABS: BUN/Creatinine Ratio 2; Blood Urea Nitrogen < 1 mg/dL (7-17)
[2021-12-11] MEDS: MAGNESIUM SULFATE 40GM/1000ML 40 GM/1,000 ML BAG IV SCH (21:02)
[2021-12-11] MEDS: LACTATED RINGERS 1,000 ML IV SCH (21:06)
[2021-12-11] MEDS ORDERED: MAGNESIUM HYDROXIDE (MOM) ORAL LIQD UDC PO PRN (22:00)
[2021-12-12] MEDS ORDERED: NIFEdipine XL 90 MG TAB PO SCH (10:00)
[2021-12-12 10:15] VITALS: BP 173/89
== END 2021-12-12 11:10 | disposition left against medical advice (07) | DRG 774 ==
LOC: APU 12:35 → TRG 12:35 → LD 12:36
PROVIDERS: ADMIT Obstetrics & Gynecology; ATTEND Obstetrics & Gynecology
PROC: 10E0XZZ Delivery of Products of Conception, External Approach (ICD-10-PCS; principal; 2021-12-11)
PROC: 3E033VJ Introduction of Other Hormone into Peripheral Vein, Percutaneous Approach (ICD-10-PCS; 2021-12-11)
DX: O10.92 Unspecified pre-existing hypertension complicating childbirth (principal); Z37.0 Single live birth; Z20.822 Contact with and (suspected) exposure to COVID-19; Z3A.36 36 weeks gestation of pregnancy; Z53.29 Procedure and treatment not carried out because of patient's decision for other reasons; O98.32 Other infections with a predominantly sexual mode of transmission complicating childbirth; A60.00 Herpesviral infection of urogenital system, unspecified; O99.214 Obesity complicating childbirth; Z88.5 Allergy status to narcotic agent; Z88.8 Allergy status to other drugs, medicaments and biological substances
CPT/HCPCS: 36415; 80053; 81001; 82565; 83615; 83735; 84450; 84460; 84550; 85014; 85018; 85025; 85027; 86850; 86900; 86901; G0378; J3490; J2590; J3475; J7120; U0003